=== PATIENT | female | born 1950 | race Caucasian/White ===

== ENCOUNTER 2020-06-17 12:53 | Outpatient (REF) | payer BC, SELFPAY ==
--- NOTE | ~2020-06-17 | XR_ITS ---
EXAMINATION: XR CHEST CLINICAL INFORMATION: Smoker. Essential tremor. COMPARISON: None. TECHNIQUE: 2 views of the chest were obtained. FINDINGS: The lungs are well expanded and clear of acute process. Heart size and pulmonary vascularity is normal. There is mild levoscoliosis of dorsal spine. There are surgical jose elias in the left axilla from previous intervention. XR/XR chest 2V IMPRESSION: No acute cardiopulmonary process seen.
== END 2020-06-17 12:54 | disposition home or self-care (01) ==
LOC: HO.XRAY 12:53
PROVIDERS: PCP Internal Medicine; Visit Provider Internal Medicine
DX: G25.0 Essential tremor (principal); F17.200 Nicotine dependence, unspecified, uncomplicated
CPT/HCPCS: 71046

== ENCOUNTER 2020-09-05 10:26 | Outpatient (REF) | payer BC, SELFPAY ==
[2020-09-05 10:43] LABS: MANUAL DIFF FLAG NO
[2020-09-05 11:18] LABS: Basophils Absolute Auto 0.1 X10*3/uL (0.0-0.2); Basophils Percent Auto 0.8 % (0-2); Eosinophils Absolute Auto 0.1 X10*3/uL (0.0-0.4); Eosinophils Percent Auto 1.4 % (0-4); Hemoglobin 15.4 g/dl (12.0-16.0); Imm Gran Abs Auto 0.01 X10*3/uL (0.00-0.03); Imm Gran Pct Auto 0.2 % (0.0-0.4); Lymphocytes Absolute Auto 2.2 X10*3/uL (1.2-4.9); Lymphocytes Percent Auto 33.2 % (20-40); Mean Corpuscular HGB Conc 32.1 g/dl (31.0-35.0); Mean Corpuscular Hemoglobin 32.4 pg (27.0-33.0); Mean Corpuscular Volume 100.8 fL (80-98); Mean Platelet Volume 11.4 fL (9.4-12.3); Monocytes Absolute Auto 0.8 X10*3/uL (0.1-1.2); Monocytes Percent Auto 11.7 % (2-11); Neutrophils Absolute Auto 3.4 X10*3/uL (2.0-8.3); Neutrophils Percent Auto 52.7 % (45-73); Platelet Count 218 X10*3/uL (160-400); Red Blood Count 4.76 X10*6/uL (4.20-5.50); Red Cell Distribution Width 13.2 % (11.0-16.0); White Blood Count 6.5 X10*3/uL (4.8-10.8)
[2020-09-05 11:28] LABS: Estimated Average Glucose 108 mg/dL; Hemoglobin A1c % 5.4 %
[2020-09-05 11:39] LABS: Glucose Urine UA NEG (NEG); Leukocyte Esterase Urine NEG (NEG); Nitrite Urine NEG (NEG); Specific Gravity - Urine 1.025 (1.005-1.025); Urine Blood 1+ (NEG); Urine Ketones NEG (NEG); Urine Protein NEG (NEG-TRACE)
[2020-09-05 11:43] LABS: Appearance Urine CLEAR; Color Urine YELLOW
[2020-09-05 11:55] LABS: Alanine Aminotransferase 12 U/L (0-31); Albumin Level 4.2 g/dL (3.5-5.0); Alkaline Phosphatase 76 U/L (39-117); Anion Gap 13 (12-20); Aspartate Amino Transferase 19 U/L (5-31); Bilirubin Total 0.5 mg/dL (0.0-1.0); Blood Urea Nitrogen 13 mg/dL (9-16); Calcium 9.6 mg/dL (8.4-10.2); Carbon Dioxide 31 mmol/L (22-29); Chloride 101 mmol/L (96-108); Cholesterol 227 mg/dL; Estimated Glomerular Filt Rate > 60; Glucose Fasting 88 mg/dL (60-99); HDL Cholesterol 59 mg/dL; LDL Cholesterol Calculated 140 mg/dl; Potassium 4.6 mmol/L (3.3-5.1); Sodium 140 mmol/L (135-145); Total Protein 6.3 g/dL (6.5-8.0); Triglycerides 141 mg/dL
[2020-09-05 12:18] LABS: Vitamin D 25-OH Total 10.1 ng/mL (>30)
[2020-09-05 12:35] LABS: Squamous Epithelial Cell Urine 2+ /LPF; WBC Urine 0-2 /HPF (0-4)
[2020-09-05 12:39] LABS: Creatinine Urine 159.89 mg/dL; Microalbum/Creatinine Ratio Ur 11.8 ug/mg cr
== END 2020-09-05 10:27 | disposition home or self-care (01) ==
LOC: HO.LNP 10:26
PROVIDERS: Visit Provider Internal Medicine
DX: Z00.00 Encounter for general adult medical examination without abnormal findings (principal); R73.03 Prediabetes; E78.2 Mixed hyperlipidemia; E78.00 Pure hypercholesterolemia, unspecified; E55.9 Vitamin D deficiency, unspecified
CPT/HCPCS: 80053; 80061; 81001; 81003; 82043; 82306; 83036; 85025

== ENCOUNTER 2020-12-26 09:53 | Outpatient (REF) | payer BC, SELFPAY ==
--- NOTE | ~2020-12-26 | MM_ITS ---
EXAMINATION: MM DIAGNOSTIC DIGITAL BREAST TOMOSYNTHESIS, BILATERAL US DIAGNOSTIC ULTRASOUND BREAST, LEFT CLINICAL INFORMATION: Due for yearly screening. At time of appointment, patient notes small superficial palpable nodule outer left breast. Prior history left breast cancer 2017 status post lumpectomy with partial breast irradiation with FELIPE brachy device in the lumpectomy bed. Ultrasound-guided aspiration lumpectomy seroma 02/01/2019 (no malignant cells on cytology). COMPARISON: Mammography: 12/25/2019, 12/23/2018, 12/20/2017, 10/16/2016; ultrasound left breast 12/23/2018. TECHNIQUE: Digital breast tomosynthesis is performed in both the craniocaudal and mediolateral oblique views along with computer-aided detection (CAD). Synthesized 2D images are generated from the tomosynthesis. Ultrasound left breast is targeted to the area of clinical concern outer breast using grayscale imaging and color Doppler without and with harmonics. Patient is able to point to area of concern at time of imaging. FINDINGS: There are scattered areas of fibroglandular density (ACR BI-RADS breast composition Category b). There are post therapy changes left breast lower inner quadrant similar to prior studies. There is residual seroma in the lumpectomy bed with chronic mild skin retraction. There is stable nodularity upper outer quadrant left breast similar to prior exams. The palpable nodule in the skin is not visualized. There are left axillary clips. No abnormal calcifications. Right breast shows no significant changes from prior studies. There is no developing density or interval mass or architectural abnormality or abnormal calcifications. Skin contours are smooth. Right axilla are unremarkable. Ultrasound outer left breast targeted to the area clinical concern demonstrates an intradermal cystic lesion long axis parallel to the skin and overall size 0.8 x 0.3 x 0.6 cm. There is no internal color flow or surrounding hyperemia. This most likely represents a sebaceous cyst or other benign epidermal cyst. Additional ultrasound of the lumpectomy bed again shows residual seroma, current measurements 2.1 x 1.6 x 1.1 cm compared with prior ultrasound measurements 2.8 x 2.7 x 1.6 cm. No internal color flow. Results are discussed with the patient at time of visit. MM/MM tomosynthesis diagnostic BI IMPRESSION: Left: -Postsurgical changes. Chronic seroma decreased in size since 2019 consistent with the prior aspiration. -Palpable nodule outer left breast corresponds to an intradermal lesion under 1 cm, likely sebaceous cyst or other benign epidermal cyst. Right: -No mammographic evidence of malignancy. ASSESSMENT: BI-RADS 2: Benign RECOMMENDATION: 1. The palpable intradermal lesion mid outer left breast may be managed as needed based on the clinical impression. If persistent or enlarging, it would be amenable to simple surgical excision. 2. Otherwise, routine annual screening mammography. This patient's information was entered into a reminder system with a target due date for their next mammogram.
== END 2020-12-26 09:54 | disposition home or self-care (01) ==
LOC: HO.MAMMO 09:53
PROVIDERS: Visit Provider Internal Medicine
DX: N63.20 Unspecified lump in the left breast, unspecified quadrant (principal); Z85.3 Personal history of malignant neoplasm of breast; Z92.3 Personal history of irradiation
CPT/HCPCS: 76642; 77062; 77066

== ENCOUNTER 2021-09-16 11:00 | Outpatient (REF) | payer BC, SELFPAY ==
[2021-09-16 11:04] LABS: MANUAL DIFF FLAG NO
[2021-09-16 11:28] LABS: Basophils Percent Auto 0.5 % (0-2); Eosinophils Absolute Auto 0.1 X10*3/uL (0.0-0.4); Eosinophils Percent Auto 1.1 % (0-4); Hematocrit 46.8 % (37.0-47.0); Hemoglobin 15.3 g/dl (12.0-16.0); Imm Gran Abs Auto 0.01 X10*3/uL (0.00-0.03); Imm Gran Pct Auto 0.2 % (0.0-0.4); Lymphocytes Absolute Auto 2.2 X10*3/uL (1.2-4.9); Lymphocytes Percent Auto 35.9 % (20-40); Mean Corpuscular HGB Conc 32.7 g/dl (31.0-35.0); Mean Corpuscular Hemoglobin 32.3 pg (27.0-33.0); Mean Corpuscular Volume 98.9 fL (80.0-98.0); Mean Platelet Volume 11.4 fL (9.4-12.3); Monocytes Absolute Auto 0.7 X10*3/uL (0.1-1.2); Monocytes Percent Auto 11.4 % (2-11); Neutrophils Absolute Auto 3.2 x10*3/uL (2.0-8.3); Neutrophils Percent Auto 50.9 % (45-73); Platelet Count 223 X10*3/uL (160-400); Red Blood Count 4.73 X10*6/uL (4.20-5.50); Red Cell Distribution Width 12.9 % (11.0-16.0); White Blood Count 6.2 X10*3/uL (4.8-10.8)
[2021-09-16 11:31] LABS: Alanine Aminotransferase 17 U/L (0-31); Albumin Level 4.5 g/dL (3.5-5.0); Alkaline Phosphatase 71 U/L (39-117); Anion Gap 12 (12-20); Aspartate Amino Transferase 21 U/L (5-31); Bilirubin Total 0.5 mg/dL (0.0-1.0); Blood Urea Nitrogen 11 mg/dL (9-16); Calcium 9.1 mg/dL (8.4-10.2); Carbon Dioxide 27 mmol/L (22-29); Chloride 103 mmol/L (96-108); Cholesterol 237 mg/dL; Estimated Glomerular Filt Rate > 60; Glucose Fasting 84 mg/dL (60-99); HDL Cholesterol 59 mg/dL; LDL Cholesterol Calculated 159 mg/dl; Potassium 4.4 mmol/L (3.3-5.1); Sodium 138 mmol/L (135-145); Total Protein 6.6 g/dL (6.5-8.0); Triglycerides 98 mg/dL
[2021-09-16 11:39] LABS: Estimated Average Glucose 108 mg/dL; Hemoglobin A1c % 5.4 %
[2021-09-16 11:45] LABS: Appearance Urine HAZY; Color Urine YELLOW; Glucose Urine UA NEG (NEG); Leukocyte Esterase Urine 2+ (NEG); Nitrite Urine NEG (NEG); PH 5.5 (5.0-8.0); Specific Gravity - Urine >= 1.030 (1.005-1.025); Urine Blood 2+ (NEG); Urine Ketones 5 MG/DL (NEG); Urine Protein 1+ MG/DL (NEG-TRACE)
[2021-09-16 11:51] LABS: Vitamin D 25-OH Total 9.4 ng/mL (>30)
[2021-09-16 12:21] LABS: Bacteria Urine 2+ /LPF; Squamous Epithelial Cell Urine 4+ /LPF
[2021-09-16 12:36] LABS: Microalbum/Creatinine Ratio Ur 65.4 ug/mg cr
== END 2021-09-16 11:01 | disposition home or self-care (01) ==
LOC: HO.LNP 11:00
PROVIDERS: Visit Provider Internal Medicine
DX: Z00.00 Encounter for general adult medical examination without abnormal findings (principal); R73.03 Prediabetes; E78.2 Mixed hyperlipidemia; E78.00 Pure hypercholesterolemia, unspecified; E55.9 Vitamin D deficiency, unspecified
CPT/HCPCS: 80053; 80061; 81001; 82043; 82306; 83036; 85025

== ENCOUNTER 2021-11-27 15:29 | Outpatient (REF) | payer BC, SELFPAY ==
[2021-11-27 16:40] LABS: TSH reflex Free T4 1.35 uIU/mL (0.32-4.0)
== END 2021-11-27 15:30 | disposition home or self-care (01) ==
LOC: HO.LNP 15:29
PROVIDERS: Visit Provider Internal Medicine
DX: G25.0 Essential tremor (principal)
CPT/HCPCS: 84443

== ENCOUNTER 2022-01-01 08:23 | Outpatient (REF) | payer BC, SELFPAY ==
--- NOTE | ~2022-01-01 | MM_ITS ---
EXAMINATION: MM SCREENING DIGITAL BREAST TOMOSYNTHESIS, BILATERAL CLINICAL INFORMATION: Due for yearly. History left breast cancer 2017 status post lumpectomy with partial breast irradiation with FELIPE brachy device in the lumpectomy bed. Ultrasound-guided aspiration lumpectomy seroma 02/01/2019 (no malignant cells on cytology). COMPARISON: Mammography: 12/26/2020, 12/25/2019, 12/23/2018, 12/20/2017, 06/16/2017, 10/16/2016; left breast ultrasound 12/26/2020. TECHNIQUE: Digital breast tomosynthesis is performed in both the craniocaudal and mediolateral oblique views along with computer-aided detection (CAD). Synthesized 2D images are generated from the tomosynthesis. FINDINGS: There are scattered areas of fibroglandular density (ACR BI-RADS breast composition Category b). There are post therapy changes left breast with mild reduced breast size and minor scarring and left axillary clips. The seroma has continued to decrease. There is benign chronic smooth nodularity again seen mid outer 3:00 position. No interval significant mass or architectural abnormality. The right breast parenchymal pattern is similar to prior studies. There are no abnormal calcifications. The axilla are unremarkable. MM/MM tomosynthesis screening BI IMPRESSION: No significant changes from prior studies. ASSESSMENT: BI-RADS 2: Benign RECOMMENDATION: Routine annual mammography screening. This patient's information was entered into a reminder system with a target due date for their next mammogram.
== END 2022-01-01 08:24 | disposition home or self-care (01) ==
LOC: HO.MAMMO 08:23
PROVIDERS: Visit Provider Internal Medicine
DX: Z12.31 Encounter for screening mammogram for malignant neoplasm of breast (principal)
CPT/HCPCS: 77063; 77067

== ENCOUNTER 2022-09-15 10:55 | Outpatient (REF) | payer BC, SELFPAY ==
[2022-09-15 11:00] LABS: MANUAL DIFF FLAG NO
[2022-09-15 11:11] LABS: Basophils Percent Auto 0.6 % (0-2); Eosinophils Absolute Auto 0.1 X10*3/uL (0.0-0.4); Eosinophils Percent Auto 1.2 % (0-4); Hematocrit 51.8 % (37.0-47.0); Hemoglobin 16.5 g/dl (12.0-16.0); Imm Gran Abs Auto 0.01 X10*3/uL (0.00-0.03); Imm Gran Pct Auto 0.2 % (0.0-0.4); Lymphocytes Absolute Auto 2.2 X10*3/uL (1.2-4.9); Lymphocytes Percent Auto 34.9 % (20-40); Mean Corpuscular HGB Conc 31.9 g/dl (31.0-35.0); Mean Corpuscular Hemoglobin 32.4 pg (27.0-33.0); Mean Corpuscular Volume 101.6 fL (80.0-98.0); Mean Platelet Volume 11.3 fL (9.4-12.3); Monocytes Absolute Auto 0.7 X10*3/uL (0.1-1.2); Monocytes Percent Auto 11.5 % (2-11); Neutrophils Absolute Auto 3.3 x10*3/uL (2.0-8.3); Neutrophils Percent Auto 51.6 % (45-73); Platelet Count 203 X10*3/uL (160-400); Red Cell Distribution Width 13.3 % (11.0-16.0); White Blood Count 6.4 X10*3/uL (4.8-10.8)
[2022-09-15 11:14] LABS: Appearance Urine Clear; Color Urine Yellow; Glucose Urine UA Negative (Negative); Leukocyte Esterase Urine Negative (Negative); Nitrite Urine Negative (Negative); PH 5.5 (5.0-9.0); Specific Gravity - Urine 1.015 (1.005-1.025); UMIC TRIGGER UACC YES; Urine Blood Small (1+) (Negative); Urine Ketones Negative (Negative); Urine Protein Negative (Neg-Trace)
[2022-09-15 11:18] LABS: Estimated Average Glucose 97 mg/dL
[2022-09-15 11:26] LABS: Bacteria Urine None Seen (None Seen); Hyaline Casts Urine 0-2 /LPF (0-2); RBC Urine 0-2 /HPF (0-2); WBC Urine 0-5 /HPF (0-5)
[2022-09-15 11:58] LABS: Alanine Aminotransferase 17 U/L (0-31); Albumin Level 4.2 g/dL (3.5-5.0); Alkaline Phosphatase 78 U/L (39-117); Anion Gap 12 (12-20); Aspartate Amino Transferase 18 U/L (5-31); Bilirubin Total 0.5 mg/dL (0.0-1.0); Blood Urea Nitrogen 11 mg/dL (9-16); Calcium 9.7 mg/dL (8.4-10.2); Carbon Dioxide 30 mmol/L (22-29); Chloride 103 mmol/L (96-108); Cholesterol 222 mg/dL; Estimated Glomerular Filt Rate > 60; Glucose Fasting 98 mg/dL (60-99); HDL Cholesterol 65 mg/dL; LDL Cholesterol Calculated 139 mg/dl; Potassium 4.4 mmol/L (3.3-5.1); Sodium 141 mmol/L (135-145); Total Protein 6.4 g/dL (6.5-8.0); Triglycerides 92 mg/dL
[2022-09-15 12:12] LABS: Vitamin D 25-OH Total 8.1 ng/mL (>30)
[2022-09-15 12:31] LABS: Creatinine Urine 104.77 mg/dL; Microalbum/Creatinine Ratio Ur 45.8 ug/mg cr
== END 2022-09-15 10:56 | disposition home or self-care (01) ==
LOC: HO.LNP 10:55
PROVIDERS: Visit Provider Internal Medicine
DX: Z00.00 Encounter for general adult medical examination without abnormal findings (principal); E78.00 Pure hypercholesterolemia, unspecified; R73.03 Prediabetes; E55.9 Vitamin D deficiency, unspecified
CPT/HCPCS: 80053; 80061; 81001; 82043; 82306; 83036; 85025

== ENCOUNTER 2022-11-03 09:53 | Outpatient (REF) | payer BC, SELFPAY ==
--- NOTE | ~2022-11-03 | FL_ITS ---
EXAMINATION: XR FLUOROSCOPY UPPER GI WITH AIR CLINICAL INFORMATION: Loss of appetite, small amount of weight loss over past 2 years approximately 20 pounds. COMPARISON: Barium swallow/esophagram 08/07/2015. TECHNIQUE: Dual contrast air upper GI was performed utilizing standard techniques with barium contrast. FINDINGS: The hypopharynx demonstrates a normal appearance. A small amount of cricopharyngeal achalasia was present. Esophagus demonstrates mild disordered contractions however the primary peristaltic wave was adequately adequately propulsive. There is no mass, mucosal abnormality, or esophageal stricture identified. A small pulsion diverticulum was noted just above the esophageal vestibule, appearing stable from the prior examination. This is best demonstrated on image 2 of 19. The GE junction was otherwise normal in appearance. No significant hiatus hernia was evident. The stomach dilated and normally with gas and contrast. Stomach has normal fold thickness and contour. No masses, ulcerations, or contour abnormalities. Contrast freely passed into the duodenal bulb without delay. Images of the duodenal bulb and proximal duodenum were normal in appearance. On reflux views, no significant gastroesophageal reflux could be elicited. The patient's symptoms could not be elicited during the examination. No additional findings noted in surrounding soft tissues and bone. Aortic calcifications were noted. FLUOROSCOPY TIME: 3.7 minutes 36 images obtained. DOSE AREA PRODUCT: 21.228 uGy-m2 (microgray-meter squared) FL/FL upper GI w air IMPRESSION: 1. Mild presbyesophagus. Mild cricopharyngeal achalasia. 2. No significant reflux, mass, hiatus hernia, stricture, or mucosal abnormality. Small pulsion diverticulum just above the lower esophageal sphincter, unchanged from the prior exam. 3. Normal appearing stomach, duodenal bulb, and proximal duodenum.
== END 2022-11-03 09:54 | disposition home or self-care (01) ==
LOC: HO.XRAY 09:53
PROVIDERS: PCP Internal Medicine; Visit Provider Internal Medicine
DX: R63.0 Anorexia (principal)
CPT/HCPCS: 74246

== ENCOUNTER → 2022-11-03 09:55 | Outpatient (BNV) | payer BC, SELFPAY | PROVIDERS: PCP Internal Medicine; Visit Provider Radiology Diagnostic Radiology | DX: R63.0 Anorexia (principal) | CPT/HCPCS: 74246 ==

== ENCOUNTER 2022-11-20 09:45 | Inpatient (IN) | payer MEDICARE, BC, SELFPAY ==
[2022-11-20] VITALS (17 sets, daily range): BP systolic 100–177; BP diastolic 44–101; PULSE 63–95; RESP 12–28; TEMP 36.2–37.1; O2SAT 65–96; BMI 25.8; BMI 22.2
--- NOTE | ~2022-11-20 | CT_ITS ---
EXAMINATION: CT HEAD WITHOUT CONTRAST CLINICAL INFORMATION: Change in mental status COMPARISON: None available. TECHNIQUE: Contiguous axial imaging was performed from the skull base to vertex without intravenous administration of contrast. This CT examination was performed using dose optimization techniques as appropriate, variously including the following: *Automated exposure control *Adjustment of mA and/or kV according to patient size (this includes techniques or standardized protocols for targeted exams where dose is matched to indication/reason for exam; i.e. extremities or head) *Use of iterative reconstruction technique DLP: 634 mGy-cm FINDINGS: There is no evidence of acute intracranial hemorrhage or territorial infarction. No abnormal mass effect or midline shift is seen. Gillespie to white matter differentiation is well preserved. No extra-axial fluid collections are identified. The ventricles are normal in size. There is no abnormal attenuation within the brain parenchyma. The osseous structures and soft tissues are normal. The mastoid air cells and visualized portions of the paranasal sinuses are well-aerated. CT/CT head/brain wo IV con IMPRESSION: No acute intracranial pathology.
--- NOTE | ~2022-11-20 | XR_ITS ---
EXAMINATION: XR CHEST CLINICAL INFORMATION: Shortness of breath. Rule out CHF versus pneumonia. COMPARISON: Previous chest x-ray May [address] September 2022 TECHNIQUE: Frontal view of the chest was obtained. FINDINGS: The cardiac silhouette does not appear enlarged. Evaluation of the cervicothoracic inlet region, superior mediastinum and upper lobes is limited due to patient positioning, chin overlying this region. There is question of bronchial wall thickening or increased bronchovascular markings in the upper lobes versus changes due to patient positioning. The lungs are otherwise clear. No pleural effusion or pneumothorax. No acute bone abnormality. Surgical clips in the left axilla. XR/XR chest 1V IMPRESSION: Limited exam due to patient positioning. Question increased central bronchovascular markings of the upper lobes versus changes due to overlying chin /artifact. Follow-up chest x-ray should be considered if clinically indicated.
--- NOTE | ~2022-11-20 | CT_ITS ---
EXAMINATION: CT CHEST WITHOUT CONTRAST CLINICAL INFORMATION: Shortness of breath question of pneumonia versus CHF COMPARISON: None available. TECHNIQUE: Multidetector volumetric CT imaging of the chest was done. Axial MIP volume rendering provided. Sagittal and coronal reformatted images were obtained. This CT examination was performed using dose optimization techniques as appropriate, variously including the following: *Automated exposure control *Adjustment of mA and/or kV according to patient size (this includes techniques or standardized protocols for targeted exams where dose is matched to indication/reason for exam; i.e. extremities or head) *Use of iterative reconstruction technique DLP: 933 mGy-cm FINDINGS: LOG CLERK: Unremarkable LUNGS: There are emphysematous changes with bullous disease in the right upper lobe and the subpleural patchy atelectasis. Central airways revealed mucous impaction of the right lower lobe main bronchus and left lower lobe main bronchus. Trachea is clear MEDIASTINUM .: The mediastinum is normal. CORONARY ARTERY CALCIFICATION: None visualized on this study. PLEURA: There is no pleural effusion. No pleural mass or thickening. But irregular thickening. The lung bases AXILLA: There are postsurgical jose elias in left axilla UPPER ABDOMEN: There is left adrenal gland nodule measured 1.4 x 1.2 cm. OSSEOUS STRUCTURES: Unremarkable. CT/CT chest wo IV con IMPRESSION: 1. Emphysematous changes with bullous disease in the right upper lobe. 2. Mucous impaction in the right and left lower lobe main bronchi. 3. Left adrenal gland nodule. Fleischner guidelines were followed.
--- NOTE | 2022-11-20 09:53 | ED_ITS ---
HPI - SOB/Dyspnea General Chief Complaint: Dyspnea Stated Complaint: DIFF BREATHING SOB Time Seen by Provider: 11/20/22 09:47 Source: patient and family Mode of arrival: EMS Limitations: altered mental status History of Present Illness HPI Narrative: 72-year-old female with a history of breast cancer 6 years prior treated with radiation therapy who presents emergency department for evaluation fatigue fever, chills, productive cough, shortness of breath, dyspnea on exertion, loss of appetite and confusion. The information came from the patient's , Ranulfo who is here in the emergency department with the patient. The states that the patient has been sick for approximately 1 week. She usually has a poor appetite but has had very little food intake over the last week the patient has had a productive cough. She has complained of shortness of breath and has been getting more dyspneic over the last week. He she had subjective fever and chills at home. She had no nausea, vomiting or diarrhea. Patient did see her primary care provider, Dr. Dow and was started on Zithromax 4 day s prior. Today, the patient appeared to be ?incoherent ?. Patient was very weak was having difficulty getting off the toilet, therefore the called an ambulance. When BLS arrived on the scene, the patient was 65% on room air and on 15 L non- rebreather mask, she was 96%. Past medical history significant for breast cancer 6 years prior treated with radiation therapy only, the states the patient had a recent CT scan of the chest abdomen pelvis on 10/02/2022 which was negative, she also had upper GI 11/03/2022 which was negative. Patient does drink 1 glass of wine per day. The patient continues to smoke cigarettes, she smoked up to 2 packs of cigarettes per day times 50 years is currently smoking 3-4 cigarettes per day. Related Data Allergies Allergy/AdvReac Type Severity Reaction Status Date / Time cat dander [CATS] Allergy Mild sneeze Unverified 12/14/19 17:24 ENVIRONMENTAL Allergy Mild SNEEZING Uncoded 12/14/19 17:24 Medical Tape Allergy Unknown rash Uncoded 08/03/17 00:00 Review of Systems Review of Systems: Yes Unobtainable due to mental status PMFSH Past Medical History PMFSH Narrative: Past medical history: Breast cancer, left breast 6 years prior treated with radiation therapy only. Social history: She is and lives with her Ranulfo who is here in the emergency department with her. Patient has a 50 year history of smoking cigarettes up to 2 packs per day he is currently smoking 4-5 cigarettes per day. She drinks 1 glass of wine daily. She does not use drugs. Social History Social History Alcohol intake: never Smoked in Last 30 Days: Yes Use of substances other than those prescribed or required for medical reasons: No Advance Directives: No Advance Directives Information Provided: No Physical Exam Vital Signs: Vital Signs: Last Vital Signs Temp 98.8 F 11/20/22 10:21 Pulse 77 11/20/22 10:25 Resp 28 H 11/20/22 13:51 BP 177/101 H 11/20/22 09:54 Pulse Ox 96 11/20/22 09:54 O2 Del Method Non-Rebreather Ma sk 11/20/22 09:54 Oxygen Flow Rate 15 11/20/22 09:54 BMI result Body Mass Index 25.8 Exam: General: Lethargic, oriented to person, she recognizes her Head: Normocephalic, atraumatic EENT: PERRL, Lids normal, sclera normal, conjunctiva normal, nose normal , ears normal, throat without erythema or exudates Neck: Supple, no adenopathy, trachea midline and nontender Lung: breath sounds symmetric, no wheezing, rales at the bases or rhonchi Chest: symmetric movement, nontender Heart: regular rate and rhythm, normal S1, S2 no murmurs or rubs Abdomen: soft, non-tender, nondistended, normal bowel sounds Back: no vertebral tenderness, no CVAT Extremities: no deformities, moves all extremities symmetrically, trace to 1+ pitting edema bilaterally symmetric Skin: no rashes, no lesion, normal color and warmth Neuro: Lethargic, oriented to person, follows commands, moves all extremities symmetrically ve Medications Administered Discontinued Medications Generic Name Dose Route Start Last Admin Trade Name Freq PRN Reason Stop Dose Admin Albuterol Sulfate 5 mg 11/20/22 10:07 11/20/22 10:16 Albuterol Sulfate (0.083%) 2.5 Mg/3 Ml Vial.Neb INHALE 11/20/22 10:08 5 mg ONCE ONE Administration Ceftriaxone Sodium 1 gm/ 50 mls @ 100 mls/hr 11/20/22 10:08 11/20/22 10:48 Sodium Chloride IV 11/20/22 10:37 Infused ONCE STA Infusion Azithromycin 500 mg/ Sodium 250 mls @ 125 mls/hr 11/20/22 10:08 11/20/22 10:47 Chloride IV 11/20/22 12:07 125 mls/hr ONCE ONE Administration Medical Decision Making Medical Decision Making MDM Narrative: 72-year-old female history of left breast cancer 6 years prior treated with radiation therapy only, tobacco use disorder, daily alcohol use who presents emergency department for evaluation of fever, chills, fatigue, productive cough, shortness of breath and worsening dyspnea on exertion over 1 week with altered mental status today prior to coming to the emergency department. Patient was seen by her PCP and started on Zithromax 4 days prior with no improvement of her symptoms. Patient was found to be hypoxic by EMS with an O2 saturation of 65% on room air which improved on 15 L via non-rebreather mask to 96%. On presentation to the emergency department the patient was lethargic but was answering questions and following commands, she she was placed on BiPAP 14/6 with FiO2 30% and maintain tidal volumes 300 cc and O2 saturations in the 96% range. Vital signs revealed an elevated blood pressure of 177/106 elevated respiratory rate of 24 and she was afebrile with a temperature of 98.6 degrees F orally. Lung exam did reveal rales at the bases and she does have trace to 1+ pitting edema bilaterally. I ordered the following evaluation on the patient: CBC, CMP, BNP, troponin, lipase, COVID-19, lactic acid, lipase, PT/INR, PTT, VBG, blood cultures x2, chest x-ray one view, EKG, continuous media monitor, continuous pulse ox monitoring. 12:20: Patient's laboratory evaluation revealed a normal CBC except for an elevated MCV of 101. Patient's the venous pH was low at 7.31 with an elevated pCO2 of 70 suggesting the patient may have respiratory acidosis. Patient's BNP was elevated at 249 but no obvious CHF on chest x-ray. High sensitive troponin I was detectable but not elevated at 8.3. The radiology interpretation of the patient's x-ray was question left upper lobe infiltrate as opposed to my interpretation which was right lower lobe and left upper lobe infiltrate. The patient is still somnolent but arousable. We have not obtained a urine sample therefore I ordered a Gan catheter. I will see if the patient can be taken off BiPAP and I will repeat a venous blood gas and high sensitive troponin I at 13:15 hours. 12:43: I did discuss the patient's presentation with the covering esthetic dermatologist, Dr. Morgan. He recommended CT scan of the head and chest without IV contrast, urine antigens for Streptococcus and Legionella, respiratory panel, ethanol level and urine drug screen. He will evaluate the patient determine if the patient needs ICU criteria. 13:59: The patient's repeat venous blood gas revealed a pH of 7.30 with a pCO2 of 75- this increased from 70. Patient most likely has acute on chronic COPD exacerbation with hypoxic hypercarbic respiratory failure. Given this increase in peak CO2, the patient will need to remain on BiPAP. The patient has been accepted into the intensive care unit by Dr. Morgan. Differential Diagnosis Differential Diagnoses: The differential diagnosis associated with the presentation includes Differential diagnosis includes was not limited to pneumonia, congestive heart failure, urinary tract infection, electrolyte abnormality, anemia Admission/Observation Consideration of admission/observation: Escalation of care including admission/observation considered Lab Data MDM Lab Attestation statement: I reviewed the patient's lab results. My interpretation patient's laboratory evaluation as follows: WBC was normal 10,800. Patient was not anemic with an H&H of 14 and 46.7 but she does have an elevated MCV of 101. Chloride elevated 92. Bicarb elevated 36. AST elevated 60. Troponin was detectable but not elevated 8.3. Lactic acid was normal 0.8. Venous blood gas revealed low pH of 7.31 with an elevated CO2 of 70. BMP was elevated 249. 11/20/22 09:56 11/20/22 09:56 Labs: Lab Results 11/20/22 11/20/22 11/20/22 Range/Units 09:56 09:56 09:56 WBC 10.8 (4.8-10.8) X10*3/uL RBC 4.56 (4.20-5.50) X10*6/uL Hgb 14.7 (12.0-16.0) g/dl Hct 46.1 (37.0-47.0) % MCV 101.1 H (80.0-98.0) fL MCH 32.2 (27.0-33.0) pg MCHC 31.9 (31.0-35.0) g/dl RDW 12.2 (11.0-16.0) % Plt Count 319 D (160-400) X10*3/uL MPV 10.0 (9.4-12.3) fL Immature Gran % (Auto) 1.4 H (0.0-0.4) % Neut % (Auto) 71.2 (45-73) % Lymph % (Auto) 14.8 L (20-40) % [place] % (Auto) 12.3 H (2-11) % Eos % (Auto) 0.1 (0-4) % Baso % (Auto) 0.2 (0-2) % Lymph # (Auto) 1.6 (1.2-4.9) X10*3/uL [place] # (Auto) 1.3 H (0.1-1.2) X10*3/uL Eos # (Auto) 0.0 (0.0-0.4) X10*3/uL Baso # (Auto) 0.0 (0.0-0.2) X10*3/uL Abs Immat Gran (auto) 0.15 H (0.00-0.03) X10*3/uL Absolute Neuts (auto) 7.7 (2.0-8.3) x10*3/uL Absolute Nucleated RBC 0.000 (0.0-0.012) X10*3/uL Nucleated RBC % (auto) 0.0 (0.0-0.2) /100WBC PT 12.0 (11.1-13.3) SEC INR 1.0 (0.9-1.1) APTT 27.2 (26.0-36.4) SEC VBG pH (7.32-7.43) VBG pCO2 mmHg VBG pO2 mmHg VBG HCO3 (22-26) mmol/L VBG O2 Saturation % VBG Base Excess mmol/L Sodium 135 (135-145) mmol/L Potassium 5.0 (3.3-5.1) mmol/L Chloride 92 L (96-108) mmol/L Carbon Dioxide 36 H (22-29) mmol/L Anion Gap 12 (12-20) BUN 17 H (9-16) mg/dL Creatinine 0.65 (0.5-1.4) mg/dL Estim Creat Clear Calc 77.4 Estimated GFR > 60 Random Glucose 157 H (60-115) mg/dL Lactic Acid (0.5-2.0) mmol/L Calcium 9.8 (8.4-10.2) mg/dL Total Bilirubin 0.3 (0.0-1.0) mg/dL AST 30 (5-31) U/L ALT 60 H (0-31) U/L Alkaline Phosphatase 81 (39-117) U/L Troponin I High Sens (<3.5-17.0) ng/L B-Natriuretic Peptide (<100) pg/mL Total Protein 7.0 (6.5-8.0) g/dL Albumin 4.0 (3.5-5.0) g/dL Lipase 11 (8-78) U/L Urine Color Urine Appearance Urine pH (5.0-9.0) Ur Specific [place] (1.005-1.025) Urine Protein (Neg-Trace) mg/dL Urine Glucose (UA) (Negative) mg/dL Urine Ketones (Negative) mg/dL Urine Blood (Negative) Urine Nitrite (Negative) Ur Leukocyte Esterase (Negative) Urine RBC (0-2) /HPF Urine WBC (0-5) /HPF Ur Squamous Epith Cells (0-2) /HPF Urine Bacteria (None Seen) Hyaline Casts (0-2) /LPF Ethyl Alcohol mg/dL COVID-19 (ANUPAM) (Negative) COVID-19 Clin Com 11/20/22 11/20/22 11/20/22 Range/Units 09:56 10:06 10:10 WBC (4.8-10.8) X10*3/uL RBC (4.20-5.50) X10*6/uL Hgb (12.0-16.0) g/dl Hct (37.0-47.0) % MCV (80.0-98.0) fL MCH (27.0-33.0) pg MCHC (31.0-35.0) g/dl RDW (11.0-16.0) % Plt Count (160-400) X10*3/uL MPV (9.4-12.3) fL Immature Gran % (Auto) (0.0-0.4) % Neut % (Auto) (45-73) % Lymph % (Auto) (20-40) % [place] % (Auto) (2-11) % Eos % (Auto) (0-4) % Baso % (Auto) (0-2) % Lymph # (Auto) (1.2-4.9) X10*3/uL [place] # (Auto) (0.1-1.2) X10*3/uL Eos # (Auto) (0.0-0.4) X10*3/uL Baso # (Auto) (0.0-0.2) X10*3/uL Abs Immat Gran (auto) (0.00-0.03) X10*3/uL Absolute Neuts (auto) (2.0-8.3) x10*3/uL Absolute Nucleated RBC (0.0-0.012) X10*3/uL Nucleated RBC % (auto) (0.0-0.2) /100WBC PT (11.1-13.3) SEC INR (0.9-1.1) APTT (26.0-36.4) SEC VBG pH 7.31 L (7.32-7.43) VBG pCO2 70 mmHg VBG pO2 132 mmHg VBG HCO3 35 H (22-26) mmol/L VBG O2 Saturation 100.0 % VBG Base Excess 6.5 mmol/L Sodium (135-145) mmol/L Potassium (3.3-5.1) mmol/L Chloride (96-108) mmol/L Carbon Dioxide (22-29) mmol/L Anion Gap (12-20) BUN (9-16) mg/dL Creatinine (0.5-1.4) mg/dL Estim Creat Clear Calc Estimated GFR Random Glucose (60-115) mg/dL Lactic Acid 0.8 (0.5-2.0) mmol/L Calcium (8.4-10.2) mg/dL Total Bilirubin (0.0-1.0) mg/dL AST (5-31) U/L ALT (0-31) U/L Alkaline Phosphatase (39-117) U/L Troponin I High Sens 8.3 (<3.5-17.0) ng/L B-Natriuretic Peptide (<100) pg/mL Total Protein (6.5-8.0) g/dL Albumin (3.5-5.0) g/dL Lipase (8-78) U/L Urine Color Urine Appearance Urine pH (5.0-9.0) Ur Specific [place] (1.005-1.025) Urine Protein (Neg-Trace) mg/dL Urine Glucose (UA) (Negative) mg/dL Urine Ketones (Negative) mg/dL Urine Blood (Negative) Urine Nitrite (Negative) Ur Leukocyte Esterase (Negative) Urine RBC (0-2) /HPF Urine WBC (0-5) /HPF Ur Squamous Epith Cells (0-2) /HPF Urine Bacteria (None Seen) Hyaline Casts (0-2) /LPF Ethyl Alcohol mg/dL COVID-19 (ANUPAM) (Negative) COVID-19 Clin Com 11/20/22 11/20/22 11/20/22 Range/Units 10:10 10:10 12:56 WBC (4.8-10.8) X10*3/uL RBC (4.20-5.50) X10*6/uL Hgb (12.0-16.0) g/dl Hct (37.0-47.0) % MCV (80.0-98.0) fL MCH (27.0-33.0) pg MCHC (31.0-35.0) g/dl RDW (11.0-16.0) % Plt Count (160-400) X10*3/uL MPV (9.4-12.3) fL Immature Gran % (Auto) (0.0-0.4) % Neut % (Auto) (45-73) % Lymph % (Auto) (20-40) % [place] % (Auto) (2-11) % Eos % (Auto) (0-4) % Baso % (Auto) (0-2) % Lymph # (Auto) (1.2-4.9) X10*3/uL [place] # (Auto) (0.1-1.2) X10*3/uL Eos # (Auto) (0.0-0.4) X10*3/uL Baso # (Auto) (0.0-0.2) X10*3/uL Abs Immat Gran (auto) (0.00-0.03) X10*3/uL Absolute Neuts (auto) (2.0-8.3) x10*3/uL Absolute Nucleated RBC (0.0-0.012) X10*3/uL Nucleated RBC % (auto) (0.0-0.2) /100WBC PT (11.1-13.3) SEC INR (0.9-1.1) APTT (26.0-36.4) SEC VBG pH (7.32-7.43) VBG pCO2 mmHg VBG pO2 mmHg VBG HCO3 (22-26) mmol/L VBG O2 Saturation % VBG Base Excess mmol/L Sodium (135-145) mmol/L Potassium (3.3-5.1) mmol/L Chloride (96-108) mmol/L Carbon Dioxide (22-29) mmol/L Anion Gap (12-20) BUN (9-16) mg/dL Creatinine (0.5-1.4) mg/dL Estim Creat Clear Calc Estimated GFR Random Glucose (60-115) mg/dL Lactic Acid (0.5-2.0) mmol/L Calcium (8.4-10.2) mg/dL Total Bilirubin (0.0-1.0) mg/dL AST (5-31) U/L ALT (0-31) U/L Alkaline Phosphatase (39-117) U/L Troponin I High Sens (<3.5-17.0) ng/L B-Natriuretic Peptide 249 H (<100) pg/mL Total Protein (6.5-8.0) g/dL Albumin (3.5-5.0) g/dL Lipase (8-78) U/L Urine Color Yellow Urine Appearance Clear Urine pH 5.5 (5.0-9.0) Ur Specific [place] 1.025 (1.005-1.025) Urine Protein 100 (2+) H (Neg-Trace) mg/dL Urine Glucose (UA) Negative (Negative) mg/dL Urine Ketones Trace (Negative) mg/dL Urine Blood Small (1+) H (Negative) Urine Nitrite Negative (Negative) Ur Leukocyte Esterase Negative (Negative) Urine RBC 11-20 H (0-2) /HPF Urine WBC 6-10 H (0-5) /HPF Ur Squamous Epith Cells 3-5 (0-2) /HPF Urine Bacteria None Seen (None Seen) Hyaline Casts 0-2 (0-2) /LPF Ethyl Alcohol mg/dL COVID-19 (ANUPAM) Negative (Negative) COVID-19 Clin Com See Note 11/20/22 11/20/22 Range/Units 12:58 13:07 WBC (4.8-10.8) X10*3/uL RBC (4.20-5.50) X10*6/uL Hgb (12.0-16.0) g/dl Hct (37.0-47.0) % MCV (80.0-98.0) fL MCH (27.0-33.0) pg MCHC (31.0-35.0) g/dl RDW (11.0-16.0) % Plt Count (160-400) X10*3/uL MPV (9.4-12.3) fL Immature Gran % (Auto) (0.0-0.4) % Neut % (Auto) (45-73) % Lymph % (Auto) (20-40) % [place] % (Auto) (2-11) % Eos % (Auto) (0-4) % Baso % (Auto) (0-2) % Lymph # (Auto) (1.2-4.9) X10*3/uL [place] # (Auto) (0.1-1.2) X10*3/uL Eos # (Auto) (0.0-0.4) X10*3/uL Baso # (Auto) (0.0-0.2) X10*3/uL Abs Immat Gran (auto) (0.00-0.03) X10*3/uL Absolute Neuts (auto) (2.0-8.3) x10*3/uL Absolute Nucleated RBC (0.0-0.012) X10*3/uL Nucleated RBC % (auto) (0.0-0.2) /100WBC PT (11.1-13.3) SEC INR (0.9-1.1) APTT (26.0-36.4) SEC VBG pH 7.30 L (7.32-7.43) VBG pCO2 75 mmHg VBG pO2 55 mmHg VBG HCO3 37 H (22-26) mmol/L VBG O2 Saturation 80.0 % VBG Base Excess 8.2 mmol/L Sodium (135-145) mmol/L Potassium (3.3-5.1) mmol/L Chloride (96-108) mmol/L Carbon Dioxide (22-29) mmol/L Anion Gap (12-20) BUN (9-16) mg/dL Creatinine (0.5-1.4) mg/dL Estim Creat Clear Calc Estimated GFR Random Glucose (60-115) mg/dL Lactic Acid (0.5-2.0) mmol/L Calcium (8.4-10.2) mg/dL Total Bilirubin (0.0-1.0) mg/dL AST (5-31) U/L ALT (0-31) U/L Alkaline Phosphatase (39-117) U/L Troponin I High Sens (<3.5-17.0) ng/L B-Natriuretic Peptide (<100) pg/mL Total Protein (6.5-8.0) g/dL Albumin (3.5-5.0) g/dL Lipase (8-78) U/L Urine Color Urine Appearance Urine pH (5.0-9.0) Ur Specific [place] (1.005-1.025) Urine Protein (Neg-Trace) mg/dL Urine Glucose (UA) (Negative) mg/dL Urine Ketones (Negative) mg/dL Urine Blood (Negative) Urine Nitrite (Negative) Ur Leukocyte Esterase (Negative) Urine RBC (0-2) /HPF Urine WBC (0-5) /HPF Ur Squamous Epith Cells (0-2) /HPF Urine Bacteria (None Seen) Hyaline Casts (0-2) /LPF Ethyl Alcohol < 10 mg/dL COVID-19 (ANUPAM) (Negative) COVID-19 Clin Com Independent Interpretation I performed an independent interpretation of an: EKG and Plain X-Ray Interpretation: My independent interpretation patient's one-view chest x-ray is as follows: Right lower lobe infiltrate and left upper lobe infiltrate My independent interpretation patient's 12 EKG done at 10:10 hours is as follows: Normal sinus rhythm with a rate of 87, normal IA interval, QRS duration QTC interval, no ST segment elevation, no ST segment depression, inverted T-wave in V1, Q-waves in V1 through V2, compared to EKG dated November 10 2016, Q-wave in V1 was old, Q-wave in V2 is new, inverted T-wave in V1 is old. Radiology Impression Radiologist Impression: XR chest 1V IMPRESSION: Limited exam due to patient positioning. Question increased central bronchovascular markings of the upper lobes versus changes due to overlying chin /artifact. Follow-up chest x-ray should be considered if clinically indicated. Dictated By:Elmira Marrero MD Critical Care Time Critical Care Time Total Critical Care Time: 120 Attestation: Critical Care: The patient was critically ill with a high probability of imminent or life threatening deterioration. I spent greater than 30 minutes of discontinuous time evaluating the patient,delivering critical care at the bedside, discussing and evaluating pertinent data with consultants. Critical care time does not include time spent performing separately billable procedures or teaching. Total time spent performing critical care was 120 minutes. Discharge Plan Discharge Clinical Impression: Acute exacerbation of chronic obstructive pulmonary disease, Lethargic Respiratory failure with hypoxia and hypercapnia Qualifiers: Chronicity: acute on chronic Qualified Code(s): J96.21 - Acute and chronic respiratory failure with hypoxia Pneumonia Qualifiers: Laterality: left Lung location: lower lobe of lung Patient Disposition: Admitted As Inpatient
--- NOTE | 2022-11-20 09:53 | ECG_ITS ---
Test Reason : SOB Blood Pressure : / mmHG Vent. Rate : 087 BPM Atrial Rate : 087 BPM P-R Int : 124 ms QRS Dur : 082 ms QT Int : 352 ms P-R-T Axes : 083 -01 044 degrees QTc Int : 423 ms Normal sinus rhythm Cannot rule out Anteroseptal infarct , age undetermined Abnormal ECG When compared with ECG of 10-NOV-2016 12:49, Minimal criteria for Anteroseptal infarct are now Present Referred By: Te Ngo Electronically Signed By:CHEMO LIVE
[2022-11-20 10:07] LABS: MANUAL DIFF FLAG NO
[2022-11-20 10:11] LABS: VBG Base Excess 6.5 mmol/L; VBG HCO3 35 mmol/L (22-26); VBG pCO2 70 mmHg; VBG pH 7.31 (7.32-7.43); VBG pO2 132 mmHg
[2022-11-20 10:11] LABS: Basophils Percent Auto 0.2 % (0-2); Eosinophils Percent Auto 0.1 % (0-4); Hematocrit 46.1 % (37.0-47.0); Hemoglobin 14.7 g/dl (12.0-16.0); Imm Gran Abs Auto 0.15 X10*3/uL (0.00-0.03); Imm Gran Pct Auto 1.4 % (0.0-0.4); Lymphocytes Absolute Auto 1.6 X10*3/uL (1.2-4.9); Lymphocytes Percent Auto 14.8 % (20-40); Mean Corpuscular HGB Conc 31.9 g/dl (31.0-35.0); Mean Corpuscular Hemoglobin 32.2 pg (27.0-33.0); Mean Corpuscular Volume 101.1 fL (80.0-98.0); Monocytes Absolute Auto 1.3 X10*3/uL (0.1-1.2); Monocytes Percent Auto 12.3 % (2-11); Neutrophils Absolute Auto 7.7 x10*3/uL (2.0-8.3); Neutrophils Percent Auto 71.2 % (45-73); Platelet Count 319 X10*3/uL (160-400); Red Blood Count 4.56 X10*6/uL (4.20-5.50); Red Cell Distribution Width 12.2 % (11.0-16.0); White Blood Count 10.8 X10*3/uL (4.8-10.8)
[2022-11-20 10:13] LABS: Venous Blood Gas Refer to POC result
[2022-11-20] MEDS: Albuterol Sulfate (0.083%) 2.5 MG/3 ML VIAL.NEB 5 MG INHALE (10:16)
[2022-11-20] MEDS: cefTRIAXone sodium 1 GM in 0.9 % Sodium Chloride 50 ML IV ×2 (10:17→20:52)
[2022-11-20 10:19] LABS: Partial Thromboplastin Time 27.2 SEC (26.0-36.4)
--- NOTE | 2022-11-20 10:29 | PC.NURSE ---
PER (BEDSIDE) PT IS ON A Z-PACK THIS IS DAY 4. PT DID NOT TAKE HER DOSAGE TODAY. PT IS ON BIPAP - 14/6 AT 30%. LUNGS - L SIDE -CTA, R SIDE OF LUNGS - DIMINSHED. HEART SOUNDS - REGULAR. ABD SOFT AND NON-TENDER, BS + X 4. PT STATES THAT PT HAS BEEN DEPRESSED, BUT SI/HI. NO EDEMA NOTED.
[2022-11-20 10:34] LABS: COVID-19 Test Negative (Negative); IDNOW Serial# BCCEAD1C
--- NOTE | 2022-11-20 10:34 | PC.NURSE ---
PT HAS # IV 20 TO L AC AND # IV 20 TO R WRIST
[2022-11-20 10:35] LABS: Alanine Aminotransferase 60 U/L (0-31); Alkaline Phosphatase 81 U/L (39-117); Anion Gap 12 (12-20); Aspartate Amino Transferase 30 U/L (5-31); Bilirubin Total 0.3 mg/dL (0.0-1.0); Blood Urea Nitrogen 17 mg/dL (9-16); Calcium 9.8 mg/dL (8.4-10.2); Carbon Dioxide 36 mmol/L (22-29); Chloride 92 mmol/L (96-108); Creatinine Clr Calc Pharmacy 77.4; Estimated Glomerular Filt Rate > 60; Glucose Random 157 mg/dL (60-115); Lipase 11 U/L (8-78); Sodium 135 mmol/L (135-145)
[2022-11-20 10:36] LABS: Lactic Acid 0.8 mmol/L (0.5-2.0)
[2022-11-20 10:42] LABS: Troponin-I High Sensitivity 8.3 ng/L (<3.5-17.0)
[2022-11-20] MEDS: Azithromycin 500 MG in 0.9 % Sodium Chloride 250 ML 125 MG IV (10:47)
[2022-11-20 10:48] LABS: B Type Natriuretic Peptide 249 pg/mL (<100)
[2022-11-20 13:12] LABS: Appearance Urine Clear; Color Urine Yellow; Glucose Urine UA Negative (Negative); Leukocyte Esterase Urine Negative (Negative); Nitrite Urine Negative (Negative); PH 5.5 (5.0-9.0); Specific Gravity - Urine 1.025 (1.005-1.025); UMIC TRIGGER UACC YES; Urine Blood Small (1+) (Negative); Urine Ketones Trace mg/dL (Negative); Urine Protein 100 (2+) mg/dL (Neg-Trace)
[2022-11-20 13:14] LABS: VBG Base Excess 8.2 mmol/L; VBG HCO3 37 mmol/L (22-26); VBG pCO2 75 mmHg; VBG pO2 55 mmHg
[2022-11-20 13:14] LABS: Venous Blood Gas Refer to POC result
[2022-11-20 13:14] LABS: Bacteria Urine None Seen (None Seen); Hyaline Casts Urine 0-2 /LPF (0-2); UACC Culture Trigger YES
[2022-11-20 13:19] LABS: Ethanol < 10 mg/dL
--- NOTE | 2022-11-20 13:45 | P.HPCC_ITS ---
History of Present Illness Date of Service: 11/20/22 Attending physician on admission: Tory Morgan Chief Complaint: Altered mental status 72-year-old female longstanding smoker presented with altered mental status prior to which there was fever productive cough shortness of breath and she had acute on chronic hypercarbic and hypoxic respiratory failure no evidence of lower respiratory tract infection by imaging but presumptive upper respiratory tract involvement and she had been for close to a week on azithromycin On BiPAP after several hours the the initially elevated pCO2 of 75 came down into the mid 50s and she eventually woke up appropriate cognitive function intact neurologically Bedside echo showed absolutely normal LV and RV function with no primary valve or pericardial disease The viral respiratory panel was entirely negative and there was clearly no evidence of an infiltrate on the chest CT scan just clearly and anatomically and emphysema with significant bilateral cystic disease Review of Systems Review of Systems: Yes all other systems are reviewed and are negative [facility] Social History Social History Household Members: Spouse Housing: House Do you presently have visiting nurse or other home services: No Alcohol intake: never Patient Tobacco Use Status: Current everyday Tobacco user Tobacco use type: Cigarette Smoked in Last 30 Days: Yes Patient Interested in Nicotine Replacement: No Patient Given Instructions on How to Stop Smoking: Yes Date Education Initiated: 11/20/22 Use of substances other than those prescribed or required for medical reasons: No Currently Displaying Signs/Symptoms of Drug Intoxication Withdrawal: No Have you been hit, kicked, punched, or otherwise hurt by someone within the past year? If so, by whom?: No Do you feel safe in your current relationship?: Yes Is there a partner from a previous relationship who is making you feel unsafe now?: No Are you made to feel afraid or neglected: No Advance Directives: No Advance Directives Information Provided: No Do you have thoughts of harming others: None Recently lost weight without trying: No Eating poorly because of decreased appetite: Yes Nutrition Risks: No Nutritional Risk Patient : No : No Poor oral hygiene: No service: No Meds Allergies Allergy/AdvReac Type Severity Reaction Status Date / Time cat dander [CATS] Allergy Mild sneeze Unverified 12/14/19 17:24 ENVIRONMENTAL Allergy Mild SNEEZING Uncoded 12/14/19 17:24 Medical Tape Allergy Unknown rash Uncoded 08/03/17 00:00 Active Medications: Current Medications Heparin Sodium (Porcine) (Heparin Sodium,Porcine 5,000 Unit/Ml Vial) 5,000 unit SUBCUT Q8H [facility] Home Medications Medication Instructions Recorded Confirmed Last Taken Type azithromycin 250 mg tablet 250 mg PO DAILY 11/20/22 11/20/22 11/19/22 History cholecalciferol (vitamin D3) 25 25 mcg PO DAILY 11/20/22 11/20/22 1 Week Ago History mcg (1,000 unit) tablet (Vitamin ~11/13/22 D3) diphenhydramine 25 1 tab PO BEDTIME PRN sleep or pain 11/20/22 11/20/22 Unknown History mg-acetaminophen 500 mg tablet (Tylenol PM Extra Strength) Physical Exam Vital Signs: Vital Signs: Last Vital Signs Temp 98.8 F 11/20/22 10:21 Pulse 77 11/20/22 10:25 Resp 23 H 11/20/22 10:25 BP 177/101 H 11/20/22 09:54 Pulse Ox 96 11/20/22 09:54 O2 Del Method Non-Rebreather Ma sk 11/20/22 09:54 Oxygen Flow Rate 15 11/20/22 09:54 BMI result Body Mass Index 25.8 Cognitive function and neurologic status is intact Bedside echo with normal cardiac function and normal inferior vena caval size with normal inspiratory collapse he is clinically euvolemic Abdomen soft no organomegaly Lungs with diminished bilateral breath sounds but prolonged expiratory time Results Labs 11/20/22 09:56 11/20/22 09:56 Labs: Laboratory Results - last 24 hr 11/20/22 11/20/22 11/20/22 09:56 09:56 09:56 MCV 101.1 H MCH 32.2 MCHC 31.9 RDW 12.2 Plt Count 319 D MPV 10.0 Immature Gran % (Auto) 1.4 H Neut % (Auto) 71.2 Lymph % (Auto) 14.8 L [place] % (Auto) 12.3 H Eos % (Auto) 0.1 Baso % (Auto) 0.2 Lymph # (Auto) 1.6 [place] # (Auto) 1.3 H Eos # (Auto) 0.0 Baso # (Auto) 0.0 Abs Immat Gran (auto) 0.15 H Absolute Neuts (auto) 7.7 Absolute Nucleated RBC 0.000 Nucleated RBC % (auto) 0.0 PT 12.0 INR 1.0 APTT 27.2 VBG pH VBG pCO2 VBG pO2 VBG HCO3 VBG O2 Saturation VBG Base Excess Anion Gap 12 Estim Creat Clear Calc 77.4 Estimated GFR > 60 Random Glucose 157 H Lactic Acid Calcium 9.8 Total Bilirubin 0.3 AST 30 ALT 60 H Alkaline Phosphatase 81 B-Natriuretic Peptide Total Protein 7.0 Albumin 4.0 Lipase 11 Urine Color Urine Appearance Urine pH Ur Specific [place] Urine Protein Urine Glucose (UA) Urine Ketones Urine Blood Urine Nitrite Ur Leukocyte Esterase Urine RBC Urine WBC Ur Squamous Epith Cells Urine Bacteria Hyaline Casts Ethyl Alcohol COVID-19 (ANUPAM) COVID-19 Clin Com 11/20/22 11/20/22 11/20/22 10:06 10:10 10:10 MCV MCH MCHC RDW Plt Count MPV Immature Gran % (Auto) Neut % (Auto) Lymph % (Auto) [place] % (Auto) Eos % (Auto) Baso % (Auto) Lymph # (Auto) [place] # (Auto) Eos # (Auto) Baso # (Auto) Abs Immat Gran (auto) Absolute Neuts (auto) Absolute Nucleated RBC Nucleated RBC % (auto) PT INR APTT VBG pH 7.31 L VBG pCO2 70 VBG pO2 132 VBG HCO3 35 H VBG O2 Saturation 100.0 VBG Base Excess 6.5 Anion Gap Estim Creat Clear Calc Estimated GFR Random Glucose Lactic Acid 0.8 Calcium Total Bilirubin AST ALT Alkaline Phosphatase B-Natriuretic Peptide 249 H Total Protein Albumin Lipase Urine Color Urine Appearance Urine pH Ur Specific [place] Urine Protein Urine Glucose (UA) Urine Ketones Urine Blood Urine Nitrite Ur Leukocyte Esterase Urine RBC Urine WBC Ur Squamous Epith Cells Urine Bacteria Hyaline Casts Ethyl Alcohol COVID-19 (ANUPAM) COVID-19 Clin Com 11/20/22 11/20/22 11/20/22 10:10 12:56 12:58 MCV MCH MCHC RDW Plt Count MPV Immature Gran % (Auto) Neut % (Auto) Lymph % (Auto) [place] % (Auto) Eos % (Auto) Baso % (Auto) Lymph # (Auto) [place] # (Auto) Eos # (Auto) Baso # (Auto) Abs Immat Gran (auto) Absolute Neuts (auto) Absolute Nucleated RBC Nucleated RBC % (auto) PT INR APTT VBG pH VBG pCO2 VBG pO2 VBG HCO3 VBG O2 Saturation VBG Base Excess Anion Gap Estim Creat Clear Calc Estimated GFR Random Glucose Lactic Acid Calcium Total Bilirubin AST ALT Alkaline Phosphatase B-Natriuretic Peptide Total Protein Albumin Lipase Urine Color Yellow Urine Appearance Clear Urine pH 5.5 Ur Specific [place] 1.025 Urine Protein 100 (2+) H Urine Glucose (UA) Negative Urine Ketones Trace Urine Blood Small (1+) H Urine Nitrite Negative Ur Leukocyte Esterase Negative Urine RBC 11-20 H Urine WBC 6-10 H Ur Squamous Epith Cells 3-5 Urine Bacteria None Seen Hyaline Casts 0-2 Ethyl Alcohol < 10 COVID-19 (ANUPAM) Negative COVID-19 Clin Com See Note 11/20/22 13:07 MCV MCH MCHC RDW Plt Count MPV Immature Gran % (Auto) Neut % (Auto) Lymph % (Auto) [place] % (Auto) Eos % (Auto) Baso % (Auto) Lymph # (Auto) [place] # (Auto) Eos # (Auto) Baso # (Auto) Abs Immat Gran (auto) Absolute Neuts (auto) Absolute Nucleated RBC Nucleated RBC % (auto) PT INR APTT VBG pH 7.30 L VBG pCO2 75 VBG pO2 55 VBG HCO3 37 H VBG O2 Saturation 80.0 VBG Base Excess 8.2 Anion Gap Estim Creat Clear Calc Estimated GFR Random Glucose Lactic Acid Calcium Total Bilirubin AST ALT Alkaline Phosphatase B-Natriuretic Peptide Total Protein Albumin Lipase Urine Color Urine Appearance Urine pH Ur Specific [place] Urine Protein Urine Glucose (UA) Urine Ketones Urine Blood Urine Nitrite Ur Leukocyte Esterase Urine RBC Urine WBC Ur Squamous Epith Cells Urine Bacteria Hyaline Casts Ethyl Alcohol COVID-19 (ANUPAM) COVID-19 Clin Com Imaging Radiologist's Impressions: Impressions Chest X-Ray 11/20/22 10:15 IMPRESSION: Limited exam due to patient positioning. Question increased central bronchovascular markings of the upper lobes versus changes due to overlying chin /artifact. Follow-up chest x-ray should be considered if clinically indicated. Assessment and Plan (1) Acute metabolic encephalopathy: Status: Acute (2) Acute exacerbation of chronic obstructive pulmonary disease: Status: Acute (3) Asthmatic bronchitis: Status: Acute (4) Respiratory failure with hypoxia and hypercapnia: Qualifiers: Chronicity: acute on chronic Qualified Code(s): J96.21 - Acute and chronic respiratory failure with hypoxia; J96.22 - Acute and chronic respiratory failure with hypercapnia Status: Acute Plan Plan is to continue with her bronchodilator treatments and support with BiPAP and then as she slowly improved hopefully wean from daytime BiPAP at least and allow her to eat and then hopefully the introducer to outpatient pulmonary consult Time Spent With Patient Time: Total time managing care of this patient today 45____ minutes.
--- NOTE | 2022-11-20 14:06 | PHA.MEDREC ---
Pharmacy Consult ? Medication Reconciliation Pharmacy has completed the medication reconciliation. Spoke to spouse to confirm meds.
[2022-11-20] MEDS: Heparin Sodium,Porcine 5,000 UNIT/ML VIAL 5000 UNIT SUBCUT ×2 (14:20→20:52)
--- NOTE | 2022-11-20 14:35 | PC.NURSE ---
Patient arousable but goes right back to sleep. Patient not in any pain. Patient has a 20g on right wrist and left antecubital. Respiratory panel just sent. at bedside. tele: sinus rythym 70's. still waiting for results of Ct scan's. Patient ambulates independently usually at home. Long time smoker still currently a smoker. will continue with plan of care.
[2022-11-20 15:01] LABS: Troponin-I High Sensitivity 7.9 ng/L (<3.5-17.0)
[2022-11-20] MEDS: Albuterol/Iprat 2.5/0.5MG 3 ML AMPUL.NEB INHALE ×2 (15:28→19:32)
[2022-11-20 16:01] LABS: Adenovirus PCR Not Detected (Not Detect.); Bordetella parapertussis PCR Not Detected (Not Detect.); Bordetella pertussis PCR Not Detected (Not Detect.); Chlamydia pneumoniae PCR Not Detected (Not Detect.); Coronavirus 229E PCR Not Detected (Not Detect.); Coronavirus HKU1 PCR Not Detected (Not Detect.); Coronavirus NL63 PCR Not Detected (Not Detect.); Coronavirus OC43 PCR Not Detected (Not Detect.); Human metapneumovirus PCR Not Detected (Not Detect.); Influenza A PCR Not Detected (Not Detect.); Influenza B PCR Not Detected (Not Detect.); Mycoplasma pneumoniae PCR Not Detected (Not Detect.); Parainfluenza 1 PCR Not Detected (Not Detect.); Parainfluenza 2 PCR Not Detected (Not Detect.); Parainfluenza 3 PCR Not Detected (Not Detect.); Parainfluenza 4 PCR Not Detected (Not Detect.); RSV PCR Not Detected (Not Detect.); Rhino/Enterovirus PCR Not Detected (Not Detect.); SARS-CoV-2 PCR Not Detected (Not Detect.)
[2022-11-20] MEDS: methylPREDNISolone Sod Succ 125 MG/2 ML VIAL IVPUSH (17:51)
[2022-11-20] MEDS: KCl 20 mEq in 5% Dex/0.45% Sod 20 MEQ/1,000 ML IV.SOLN 80 MEQ IVCONT (17:52)
[2022-11-20 18:29] LABS: Venous Blood Gas Refer to POC result
[2022-11-20 18:29] LABS: VBG Base Excess 9.9 mmol/L; VBG HCO3 35 mmol/L (22-26); VBG pCO2 52 mmHg; VBG pH 7.44 (7.32-7.43); VBG pO2 90 mmHg
[2022-11-20] MEDS: guaiFENesin LA 600 MG TAB.ER.12H PO (22:18)
[2022-11-21] VITALS (33 sets, daily range): BP systolic 105–133; BP diastolic 45–73; PULSE 62–94; RESP 12–34; TEMP 36.3–37.3; O2SAT 90–98; BMI 22.6
[2022-11-21] MEDS: Dextrose 5 % and 0.45 % NaCl 1,000 ML 80 ML IVCONT ×2 (01:01→13:51)
[2022-11-21 01:34] LABS: Amphetamine Screen Urine Not Detected (Not Detect); Barbiturates, Urine Not Detected (Not Detect); Benzodiazepines Screen Urine Not Detected (Not Detect); Cannabinoid Screen Urine Not Detected (Not Detect); Cocaine Screen Urine Not Detected (Not Detect); Fentanyl, urine Not Detected (Not Detect); Opiate Screen Urine Not Detected (Not Detect); Phencyclidine Screen Urine Not Detected (Not Detect)
[2022-11-21] MEDS: methylPREDNISolone Sod Succ 125 MG/2 ML VIAL 60 MG IVPUSH ×2 (04:50→17:56)
[2022-11-21] MEDS: Heparin Sodium,Porcine 5,000 UNIT/ML VIAL 5000 UNIT SUBCUT ×3 (04:52→21:22)
[2022-11-21 05:40] LABS: VBG HCO3 41 mmol/L (22-26); VBG pCO2 66 mmHg; VBG pH 7.39 (7.32-7.43); VBG pO2 51 mmHg
[2022-11-21 05:43] LABS: Venous Blood Gas Refer to POC result
[2022-11-21 06:24] LABS: MANUAL DIFF FLAG NO
[2022-11-21 06:33] LABS: Basophils Percent Auto 0.2 % (0-2); Hematocrit 41.8 % (37.0-47.0); Hemoglobin 13.2 g/dl (12.0-16.0); Imm Gran Abs Auto 0.02 X10*3/uL (0.00-0.03); Imm Gran Pct Auto 0.4 % (0.0-0.4); Lymphocytes Absolute Auto 0.5 X10*3/uL (1.2-4.9); Lymphocytes Percent Auto 8.9 % (20-40); Mean Corpuscular HGB Conc 31.6 g/dl (31.0-35.0); Mean Corpuscular Hemoglobin 31.7 pg (27.0-33.0); Mean Corpuscular Volume 100.5 fL (80.0-98.0); Mean Platelet Volume 10.5 fL (9.4-12.3); Monocytes Absolute Auto 0.2 X10*3/uL (0.1-1.2); Monocytes Percent Auto 3.8 % (2-11); Neutrophils Absolute Auto 4.8 x10*3/uL (2.0-8.3); Neutrophils Percent Auto 86.7 % (45-73); Platelet Count 290 X10*3/uL (160-400); Red Blood Count 4.16 X10*6/uL (4.20-5.50); Red Cell Distribution Width 12.3 % (11.0-16.0); White Blood Count 5.5 X10*3/uL (4.8-10.8)
[2022-11-21 07:25] LABS: Albumin Level 3.4 g/dL (3.5-5.0); Anion Gap 11 (12-20); Blood Urea Nitrogen 11 mg/dL (9-16); Calcium 9.1 mg/dL (8.4-10.2); Carbon Dioxide 34 mmol/L (22-29); Chloride 96 mmol/L (96-108); Creatinine Clr Calc Pharmacy 79.3; Estimated Glomerular Filt Rate > 60; Glucose Random 168 mg/dL (60-115); Magnesium 2.1 mg/dL (1.6-2.6); Phosphorus 2.7 mg/dL (2.7-4.5); Sodium 136 mmol/L (135-145)
[2022-11-21] MEDS: Albuterol/Iprat 2.5/0.5MG 3 ML AMPUL.NEB INHALE ×4 (07:44→20:20)
[2022-11-21] MEDS: cefTRIAXone sodium 1 GM in 0.9 % Sodium Chloride 50 ML IV ×2 (09:17→21:22)
[2022-11-21] MEDS: Azithromycin 500 MG in 0.9 % Sodium Chloride 250 ML 125 MG IV (09:17)
[2022-11-21 11:07] LABS: VBG Base Excess 10.2 mmol/L; VBG HCO3 38 mmol/L (22-26); VBG pCO2 67 mmHg; VBG pH 7.36 (7.32-7.43); VBG pO2 62 mmHg
[2022-11-21 11:25] LABS: Venous Blood Gas Refer to POC result
--- NOTE | 2022-11-21 15:46 | MHC.CM.PN ---
DX COPD exacerbation. She lives with her spouse. She is independent will all functional mobility. A copy of her HCP has been requested. DP Home with family support and transportation.
--- NOTE | 2022-11-21 17:28 | PM.CCPN ---
Subjective Subjective Date of Service: 11/21/22 Interval History: 72-year-old smoking related COPD came in with acute on chronic hypercarbic and hypoxic respiratory failure with what appears to be asthmatic bronchitis currently covered with ceftriaxone and azithromycin but being that she had already been almost a week on the azithromycin without particular success I might consider switching that out for doxycycline She has improved to the point where she was on nasal high-flow for each meal with pCO2 is elevating from approximately 55 while on BiPAP up to 666 while on nasal high-flow but clinically doing well Critical Care Time (minutes): 45 Physical Exam Vital Signs: Vital Signs: Last Vital Signs Temp 99.1 F 11/21/22 15:57 Pulse 82 11/21/22 17:00 Resp 24 H 11/21/22 17:00 BP 117/49 L 11/21/22 17:00 Pulse Ox 95 11/21/22 17:00 O2 Del Method High Flow Nasal C annula 11/21/22 17:00 O2 Flow Rate 35 11/21/22 17:00 FiO2 30 11/21/22 17:00 Oxygen Flow Rate 15 11/20/22 09:54 BMI result Body Mass Index 22.6 Unsupported vital signs 117/49 for a mean of 71 sinus rhythm rate [address]-T changes and oxygen saturation 96% Abdomen soft no organomegaly nontender Lungs still with some prolonged expiratory time but otherwise absent breath sounds no other adventitious sounds Cardiac exam by bedside echo normal No peripheral edema no acrocyanosis and skin is intact Objective Data Labs 11/21/22 05:33 11/21/22 06:56 Labs: Laboratory Results - last 24 hr 11/20/22 11/20/22 11/21/22 12:56 18:25 05:33 WBC 5.5 RBC 4.16 L Hgb 13.2 Hct 41.8 MCV 100.5 H MCH 31.7 MCHC 31.6 RDW 12.3 Plt Count 290 MPV 10.5 Immature Gran % (Auto) 0.4 Neut % (Auto) 86.7 H Lymph % (Auto) 8.9 L [place] % (Auto) 3.8 Eos % (Auto) 0.0 Baso % (Auto) 0.2 Lymph # (Auto) 0.5 L [place] # (Auto) 0.2 Eos # (Auto) 0.0 Baso # (Auto) 0.0 Abs Immat Gran (auto) 0.02 Absolute Neuts (auto) 4.8 Absolute Nucleated RBC 0.000 Nucleated RBC % (auto) 0.0 VBG pH 7.44 H VBG pCO2 52 VBG pO2 90 VBG HCO3 35 H VBG O2 Saturation 99.0 VBG Base Excess 9.9 Sodium Potassium Chloride Carbon Dioxide Anion Gap BUN Creatinine Estim Creat Clear Calc Estimated GFR Random Glucose Calcium Phosphorus Magnesium Albumin Urine Opiates Screen Not Detected Urine Fentanyl Screen Not Detected Ur Barbiturates Screen Not Detected Ur Phencyclidine Scrn Not Detected Ur Amphetamines Screen Not Detected U Benzodiazepines Scrn Not Detected Urine Cocaine Screen Not Detected U Marijuana (THC) Screen Not Detected 11/21/22 11/21/22 11/21/22 05:34 06:56 11:03 WBC RBC Hgb Hct MCV MCH MCHC RDW Plt Count MPV Immature Gran % (Auto) Neut % (Auto) Lymph % (Auto) [place] % (Auto) Eos % (Auto) Baso % (Auto) Lymph # (Auto) [place] # (Auto) Eos # (Auto) Baso # (Auto) Abs Immat Gran (auto) Absolute Neuts (auto) Absolute Nucleated RBC Nucleated RBC % (auto) VBG pH 7.39 7.36 VBG pCO2 66 67 VBG pO2 51 62 VBG HCO3 41 H 38 H VBG O2 Saturation 76.0 88.0 VBG Base Excess 13.0 10.2 Sodium 136 Potassium 5.0 Chloride 96 Carbon Dioxide 34 H Anion Gap 11 L BUN 11 Creatinine 0.56 Estim Creat Clear Calc 79.3 Estimated GFR > 60 Random Glucose 168 H Calcium 9.1 D Phosphorus 2.7 Magnesium 2.1 Albumin 3.4 L Urine Opiates Screen Urine Fentanyl Screen Ur Barbiturates Screen Ur Phencyclidine Scrn Ur Amphetamines Screen U Benzodiazepines Scrn Urine Cocaine Screen U Marijuana (THC) Screen Microbiology Microbiology Results: Microbiology 11/20/22 Unknown Urine clean catch - Urine loza top Urine Culture - Final No growth. 11/20/22 10:10 Blood - Venous Blood Culture - Preliminary No growth after 24 hours. 11/20/22 09:56 Blood - Venous Blood Culture - Preliminary No growth after 24 hours. 11/20/22 22:12 Sputum - Expectorated Gram Stain - Final 11/20/22 22:12 Sputum - Expectorated Sputum Culture - Final Progress Note: A&P Assessment and plan (1) Asthmatic bronchitis: Status: Acute (2) Acute metabolic encephalopathy: Status: Acute (3) Acute exacerbation of chronic obstructive pulmonary disease: Status: Acute (4) Respiratory failure with hypoxia and hypercapnia: Status: Acute (5) Pneumonia: Status: Acute (6) Lethargic: Status: Acute Plan Plan is to switch out the Zithromax for doxycycline continue other treatments as above she will spend the night resting on BiPAP Quality Stroke Does the patient have a stroke diagnosis?: No VTE Prior VTE?: No VTE Risk Level:: Medical - moderate - high VTE Device Contraindication: N/A - Device Ordered VTE Drug Contraindication: N/A - Med Ordered
[2022-11-21] MEDS: Pantoprazole Sodium 40 MG/10 ML VIAL IVPUSH (17:55)
[2022-11-22] VITALS (31 sets, daily range): BP systolic 110–143; BP diastolic 50–72; PULSE 60–91; RESP 18–30; TEMP 36.2–36.8; O2SAT 93–98; BMI 22.6
[2022-11-22] MEDS: Dextrose 5 % and 0.45 % NaCl 1,000 ML 80 ML IVCONT ×2 (01:59→13:54)
[2022-11-22 04:45] LABS: VBG Base Excess 10.8 mmol/L; VBG HCO3 37 mmol/L (22-26); VBG pCO2 58 mmHg; VBG pH 7.41 (7.32-7.43); VBG pO2 72 mmHg
[2022-11-22 04:47] LABS: Venous Blood Gas Refer to POC result
[2022-11-22] MEDS: Heparin Sodium,Porcine 5,000 UNIT/ML VIAL 5000 UNIT SUBCUT ×3 (05:31→21:39)
[2022-11-22] MEDS: Pantoprazole Sodium 40 MG/10 ML VIAL IVPUSH ×2 (05:31→15:58)
[2022-11-22] MEDS: methylPREDNISolone Sod Succ 125 MG/2 ML VIAL 60 MG IVPUSH ×2 (05:31→17:41)
[2022-11-22 06:02] LABS: Albumin Level 3.4 g/dL (3.5-5.0); Anion Gap 12 (12-20); Blood Urea Nitrogen 10 mg/dL (9-16); Calcium 9.4 mg/dL (8.4-10.2); Carbon Dioxide 32 mmol/L (22-29); Chloride 101 mmol/L (96-108); Creatinine Clr Calc Pharmacy 77.9; Estimated Glomerular Filt Rate > 60; Glucose Random 133 mg/dL (60-115); Magnesium 2.3 mg/dL (1.6-2.6); Potassium 4.8 mmol/L (3.3-5.1); Sodium 140 mmol/L (135-145)
[2022-11-22 07:06] LABS: Basophils Percent Auto 0.1 % (0-2); Hemoglobin 13.6 g/dl (12.0-16.0); Imm Gran Abs Auto 0.12 X10*3/uL (0.00-0.03); Imm Gran Pct Auto 0.8 % (0.0-0.4); Lymphocytes Absolute Auto 0.7 X10*3/uL (1.2-4.9); Lymphocytes Percent Auto 4.3 % (20-40); MANUAL DIFF FLAG SCAN; Mean Corpuscular HGB Conc 31.6 g/dl (31.0-35.0); Mean Corpuscular Hemoglobin 32.2 pg (27.0-33.0); Mean Corpuscular Volume 101.7 fL (80.0-98.0); Mean Platelet Volume 10.2 fL (9.4-12.3); Monocytes Absolute Auto 0.7 X10*3/uL (0.1-1.2); Monocytes Percent Auto 4.4 % (2-11); Neutrophils Percent Auto 90.4 % (45-73); Platelet Count 321 X10*3/uL (160-400); Red Blood Count 4.23 X10*6/uL (4.20-5.50); Red Cell Distribution Width 12.5 % (11.0-16.0); SCAN SMEAR FLAG 1; White Blood Count 15.5 X10*3/uL (4.8-10.8)
[2022-11-22 07:28] LABS: SLIDE REVIEW VERIFIED
[2022-11-22] MEDS: Albuterol/Iprat 2.5/0.5MG 3 ML AMPUL.NEB INHALE ×4 (08:38→19:13)
[2022-11-22] MEDS: cefTRIAXone sodium 1 GM in 0.9 % Sodium Chloride 50 ML IV ×2 (09:34→21:39)
[2022-11-22] MEDS: Doxycycline Hyclate 100 MG in 0.9 % Sodium Chloride 250 ML 166.67 MG IV ×2 (09:36→20:04)
[2022-11-22 11:37] LABS: VBG Base Excess 6.5 mmol/L; VBG HCO3 36 mmol/L (22-26); VBG pCO2 75 mmHg; VBG pH 7.28 (7.32-7.43); VBG pO2 48 mmHg
[2022-11-22 11:45] LABS: Venous Blood Gas Refer to POC result
--- NOTE | 2022-11-22 12:34 | P.PNCC_ITS ---
Subjective Subjective Date of Service: 11/22/22 Interval History: 72-year-old female with COPD came in with altered mental status following a week of what sounds like a febrile respiratory illness which she became lethargic with increased respiratory effort she came in was in acute on chronic hypercarbic and hypoxic respiratory failure no lower respiratory tract infiltrate by CT scan and there was definitely no evidence of pulmonary edema despite a borderline BNP of 249 bedside echo demonstrating globally normal systolic left heart wall motion and she had normal inferior vena caval diameter or with normal inspiratory collapse so no indication of hypervolemia and treated still as a community-acquired and infection but having been on Zithromax from her primary care throughout the week and failing we made it ceftriaxone and dex as doxycycline in combination and she is receiving her albuterol treatments and today she came down to her chronic CO2 level which was about 58 but 3 hours of nasal cannula and she developed an acute respiratory acidosis with pCO2 of 75 gave her a a brief rest on BiPAP before eating lunch Although I was hoping to send her to [facility]U today she still needs daytime p.r.n. BiPAP treatment Critical Care Time (minutes): 35 Physical Exam Vital Signs: Vital Signs: Last Vital Signs Temp 97.1 F 11/22/22 12:00 Pulse 76 11/22/22 12:00 Resp 24 H 11/22/22 12:00 BP 124/58 L 11/22/22 12:00 Pulse Ox 96 11/22/22 12:00 O2 Del Method BiPAP 11/22/22 12:00 O2 Flow Rate 3 11/22/22 11:00 FiO2 30 11/22/22 12:00 Oxygen Flow Rate 15 11/20/22 09:54 BMI result Body Mass Index 22.6 Vital signs are stable awake alert good cognitive and neurological function Good bilateral carotid upstrokes and no neck vein distension no gallops Diminished bilateral breath sounds and still has some bilateral scattered wheezes Abdomen soft no organomegaly No peripheral edema Objective Data Labs 11/22/22 04:40 11/22/22 04:40 Labs: Laboratory Results - last 24 hr 11/22/22 11/22/22 11/22/22 04:40 04:40 04:40 WBC 15.5 H RBC 4.23 Hgb 13.6 Hct 43.0 MCV 101.7 H MCH 32.2 MCHC 31.6 RDW 12.5 Plt Count 321 MPV 10.2 Immature Gran % (Auto) 0.8 H Neut % (Auto) 90.4 H Lymph % (Auto) 4.3 L [place] % (Auto) 4.4 Eos % (Auto) 0.0 Baso % (Auto) 0.1 Lymph # (Auto) 0.7 L [place] # (Auto) 0.7 Eos # (Auto) 0.0 Baso # (Auto) 0.0 Abs Immat Gran (auto) 0.12 H Absolute Neuts (auto) 14.0 H Absolute Nucleated RBC 0.000 Nucleated RBC % (auto) 0.0 Smear Tech's Comments VERIFIED VBG pH 7.41 VBG pCO2 58 VBG pO2 72 VBG HCO3 37 H VBG O2 Saturation 95.0 VBG Base Excess 10.8 Sodium 140 Potassium 4.8 Chloride 101 Carbon Dioxide 32 H Anion Gap 12 BUN 10 Creatinine 0.57 Estim Creat Clear Calc 77.9 Estimated GFR > 60 Random Glucose 133 H Calcium 9.4 Phosphorus 3.0 Magnesium 2.3 Albumin 3.4 L 11/22/22 11:33 WBC RBC Hgb Hct MCV MCH MCHC RDW Plt Count MPV Immature Gran % (Auto) Neut % (Auto) Lymph % (Auto) [place] % (Auto) Eos % (Auto) Baso % (Auto) Lymph # (Auto) [place] # (Auto) Eos # (Auto) Baso # (Auto) Abs Immat Gran (auto) Absolute Neuts (auto) Absolute Nucleated RBC Nucleated RBC % (auto) Smear Tech's Comments VBG pH 7.28 L VBG pCO2 75 VBG pO2 48 VBG HCO3 36 H VBG O2 Saturation 70.0 VBG Base Excess 6.5 Sodium Potassium Chloride Carbon Dioxide Anion Gap BUN Creatinine Estim Creat Clear Calc Estimated GFR Random Glucose Calcium Phosphorus Magnesium Albumin Microbiology Microbiology Results: Microbiology 11/20/22 10:10 Blood - Venous Blood Culture - Preliminary No growth after 48 hours. 11/20/22 09:56 Blood - Venous Blood Culture - Preliminary No growth after 48 hours. 11/20/22 Unknown Urine clean catch - Urine loza top Urine Culture - Final No growth. 11/20/22 22:12 Sputum - Expectorated Gram Stain - Final 11/20/22 22:12 Sputum - Expectorated Sputum Culture - Final Progress Note: A&P Assessment and plan (1) Asthmatic bronchitis: Status: Acute (2) Acute metabolic encephalopathy: Status: Acute (3) Acute exacerbation of chronic obstructive pulmonary disease: Status: Acute (4) Respiratory failure with hypoxia and hypercapnia: Status: Acute (5) Lethargic: Status: Acute Plan The plan is the continued need besides nocturnal for p.r.n. daytime BiPAP but between meals we may may be able to try high-flow nasal and see if that at least preserved her pCO2 is in the mid 60s and no greater Quality Stroke Does the patient have a stroke diagnosis?: No VTE Prior VTE?: No VTE Risk Level:: Medical - moderate - high VTE Device Contraindication: N/A - Device Ordered VTE Drug Contraindication: N/A - Med Ordered
[2022-11-22 15:24] LABS: VBG Base Excess 10.1 mmol/L; VBG HCO3 36 mmol/L (22-26); VBG pCO2 55 mmHg; VBG pH 7.42 (7.32-7.43); VBG pO2 74 mmHg
[2022-11-22 16:03] LABS: Procalcitonin 0.02 ng/mL
[2022-11-22 17:30] LABS: Venous Blood Gas Refer to POC result
[2022-11-23] VITALS (24 sets, daily range): BP systolic 114–146; BP diastolic 56–71; PULSE 62–101; RESP 18–31; TEMP 36.4–36.8; O2SAT 90–96; BMI 24.0
[2022-11-23] MEDS: diphenhydrAMINE HCL 50 MG/ML VIAL 12.5 MG IVPUSH ×2 (00:13→22:20)
[2022-11-23] MEDS: Dextrose 5 % and 0.45 % NaCl 1,000 ML 80 ML IVCONT (02:34)
[2022-11-23 04:23] LABS: VBG Base Excess 8.6 mmol/L; VBG HCO3 33 mmol/L (22-26); VBG pCO2 48 mmHg; VBG pH 7.44 (7.32-7.43); VBG pO2 80 mmHg
[2022-11-23 04:29] LABS: Venous Blood Gas Refer to POC result
[2022-11-23 04:38] LABS: MANUAL DIFF FLAG NO
[2022-11-23 04:39] LABS: Basophils Percent Auto 0.1 % (0-2); Hematocrit 39.4 % (37.0-47.0); Hemoglobin 12.6 g/dl (12.0-16.0); Imm Gran Abs Auto 0.17 X10*3/uL (0.00-0.03); Imm Gran Pct Auto 1.4 % (0.0-0.4); Lymphocytes Absolute Auto 0.7 X10*3/uL (1.2-4.9); Lymphocytes Percent Auto 5.6 % (20-40); Mean Corpuscular Hemoglobin 32.1 pg (27.0-33.0); Mean Corpuscular Volume 100.3 fL (80.0-98.0); Mean Platelet Volume 9.9 fL (9.4-12.3); Monocytes Absolute Auto 0.5 X10*3/uL (0.1-1.2); Monocytes Percent Auto 4.3 % (2-11); Neutrophils Absolute Auto 10.9 x10*3/uL (2.0-8.3); Neutrophils Percent Auto 88.6 % (45-73); Platelet Count 280 X10*3/uL (160-400); Red Blood Count 3.93 X10*6/uL (4.20-5.50); Red Cell Distribution Width 12.6 % (11.0-16.0); White Blood Count 12.3 X10*3/uL (4.8-10.8)
[2022-11-23 05:04] LABS: Albumin Level 2.7 g/dL (3.5-5.0); Anion Gap 8 (12-20); Blood Urea Nitrogen 9 mg/dL (9-16); Calcium 7.7 mg/dL (8.4-10.2); Carbon Dioxide 29 mmol/L (22-29); Chloride 99 mmol/L (96-108); Creatinine Clr Calc Pharmacy 66.2; Estimated Glomerular Filt Rate > 60; Glucose Random 671 mg/dL (60-115); Magnesium 1.8 mg/dL (1.6-2.6); Phosphorus 2.4 mg/dL (2.7-4.5); Sodium 132 mmol/L (135-145)
[2022-11-23 05:11] LABS: Glucose, Whole Blood 125 mg/dL (60-115)
[2022-11-23] MEDS: methylPREDNISolone Sod Succ 125 MG/2 ML VIAL 60 MG IVPUSH (05:16)
[2022-11-23] MEDS: Heparin Sodium,Porcine 5,000 UNIT/ML VIAL 5000 UNIT SUBCUT ×3 (05:16→22:12)
[2022-11-23] MEDS: Pantoprazole Sodium 40 MG/10 ML VIAL IVPUSH ×2 (05:16→15:31)
[2022-11-23] MEDS: Albuterol/Iprat 2.5/0.5MG 3 ML AMPUL.NEB INHALE ×4 (07:51→19:01)
--- NOTE | 2022-11-23 09:47 | P.EN_ITS ---
Event Note Date of Service: 11/23/22 Event Note: ICU transfer. Discussed with high lift operator. Patient admitted for acute hypoxic respiratory failure secondary to COPD exacerbation requiring BiPAP. Still on 1 L nasal cannula. Will transfer to medical floor. Time Spent With Patient Time: Total time managing care of this patient today ____ minutes.
[2022-11-23] MEDS: Azithromycin 250 MG TABLET PO (10:21)
[2022-11-23] MEDS: predniSONE 20 MG TABLET 40 MG PO (10:21)
[2022-11-23] MEDS: cefTRIAXone sodium 1 GM in 0.9 % Sodium Chloride 50 ML IV ×2 (10:22→22:13)
--- NOTE | 2022-11-23 10:49 | PM.CCPN ---
Subjective Subjective Date of Service: 11/23/22 Interval History: 72-year-old lady recent 50+ pack-year smoker with likely underlying undiagnosed moderate to severe COPD with CO2 retention admitted on 11/20/2022 with acute hypoxic and hypercapnic respiratory failure requiring BiPAP support Secondary to COPD exacerbation, now titrated off. No events overnight. Critical Care Time (minutes): 0 Physical Exam Vital Signs: Vital Signs: Last Vital Signs Temp 97.6 F 11/23/22 08:00 Pulse 78 11/23/22 10:00 Resp 20 11/23/22 10:00 BP 144/67 H 11/23/22 10:00 Pulse Ox 92 11/23/22 10:00 O2 Del Method Nasal Cannula 11/23/22 10:00 O2 Flow Rate 1 11/23/22 10:00 FiO2 30 11/23/22 08:00 Oxygen Flow Rate 15 11/20/22 09:54 BMI result Body Mass Index 24.0 Const: General: no acute distress, alert and awake Eyes: Sclerae: sclerae normal EOM: EOMs intact bilaterally Neck: Neck: Yes no lymphadenopathy, Yes trachea midline and Yes supple Resp: Effort & Inspection: normal respiratory effort and no respiratory distress Auscultation: clear to auscultation bilaterally Cardio: Rate: regular rate Rhythm: regular rhythm Heart sounds: no gallops, no murmurs and no rubs GI: Palpation (GI): Soft to palpation and Other GI palpation findings present ( Nontender) Auscultation: normal bowel sounds Extrem: General: Yes no pedal edema, No clubbing and No cyanosis Objective Data Labs 11/23/22 04:14 11/23/22 04:14 Labs: Laboratory Results - last 24 hr 11/22/22 11/22/22 11/22/22 11:33 15:13 15:19 WBC RBC Hgb Hct MCV MCH MCHC RDW Plt Count MPV Immature Gran % (Auto) Neut % (Auto) Lymph % (Auto) [place] % (Auto) Eos % (Auto) Baso % (Auto) Lymph # (Auto) [place] # (Auto) Eos # (Auto) Baso # (Auto) Abs Immat Gran (auto) Absolute Neuts (auto) Absolute Nucleated RBC Nucleated RBC % (auto) VBG pH 7.28 L 7.42 VBG pCO2 75 55 VBG pO2 48 74 VBG HCO3 36 H 36 H VBG O2 Saturation 70.0 95.0 VBG Base Excess 6.5 10.1 Sodium Potassium Chloride Carbon Dioxide Anion Gap BUN Creatinine Estim Creat Clear Calc Estimated GFR POC Glucose Random Glucose Calcium Phosphorus Magnesium Albumin Procalcitonin 0.02 11/23/22 11/23/22 11/23/22 04:14 04:14 04:19 WBC 12.3 H RBC 3.93 L Hgb 12.6 Hct 39.4 MCV 100.3 H MCH 32.1 MCHC 32.0 RDW 12.6 Plt Count 280 MPV 9.9 Immature Gran % (Auto) 1.4 H Neut % (Auto) 88.6 H Lymph % (Auto) 5.6 L [place] % (Auto) 4.3 Eos % (Auto) 0.0 Baso % (Auto) 0.1 Lymph # (Auto) 0.7 L [place] # (Auto) 0.5 Eos # (Auto) 0.0 Baso # (Auto) 0.0 Abs Immat Gran (auto) 0.17 H Absolute Neuts (auto) 10.9 H Absolute Nucleated RBC 0.000 Nucleated RBC % (auto) 0.0 VBG pH 7.44 H VBG pCO2 48 VBG pO2 80 VBG HCO3 33 H VBG O2 Saturation 98.0 VBG Base Excess 8.6 Sodium 132 L Potassium 4.0 Chloride 99 Carbon Dioxide 29 Anion Gap 8 L BUN 9 Creatinine 0.67 Estim Creat Clear Calc 66.2 Estimated GFR > 60 POC Glucose Random Glucose 671 H* Calcium 7.7 L D Phosphorus 2.4 L Magnesium 1.8 Albumin 2.7 L Procalcitonin 11/23/22 05:08 WBC RBC Hgb Hct MCV MCH MCHC RDW Plt Count MPV Immature Gran % (Auto) Neut % (Auto) Lymph % (Auto) [place] % (Auto) Eos % (Auto) Baso % (Auto) Lymph # (Auto) [place] # (Auto) Eos # (Auto) Baso # (Auto) Abs Immat Gran (auto) Absolute Neuts (auto) Absolute Nucleated RBC Nucleated RBC % (auto) VBG pH VBG pCO2 VBG pO2 VBG HCO3 VBG O2 Saturation VBG Base Excess Sodium Potassium Chloride Carbon Dioxide Anion Gap BUN Creatinine Estim Creat Clear Calc Estimated GFR POC Glucose 125 H Random Glucose Calcium Phosphorus Magnesium Albumin Procalcitonin Microbiology Microbiology Results: Microbiology 11/20/22 10:10 Blood - Venous Blood Culture - Preliminary No growth after 48 hours. 11/20/22 09:56 Blood - Venous Blood Culture - Preliminary No growth after 48 hours. 11/20/22 Unknown Urine clean catch - Urine loza top Urine Culture - Final No growth. 11/20/22 22:12 Sputum - Expectorated Gram Stain - Final 11/20/22 22:12 Sputum - Expectorated Sputum Culture - Final Progress Note: A&P Assessment and plan (1) Acute exacerbation of chronic obstructive pulmonary disease: Status: Acute (2) Respiratory failure with hypoxia and hypercapnia: Status: Acute (3) Acute bronchitis: Status: Acute Plan Assessment: 72-year-old lady admitted with acute hypoxic and hypercapnic respiratory failure likely secondary to underlying undiagnosed moderate to severe COPD exacerbation with an acute bronchitis briefly requiring BiPAP support Plan: Neuro: No acute issues. Cardiac: No acute issues. Pulmonary: acute hypoxic and hypercapnic respiratory failure secondary to likely COPD exacerbation initially requiring BiPAP support, now titrated off. Continue on nebulized bronchodilators, taper off systemic glucocorticoids. Ceftriaxone and azithromycin for 5 days. Will require outpatient pulmonary follow-up. Renal: No acute issues. Endo: No acute issues. GI: No acute issues. ID: No acute issues Heme/Onc: No acute issues. Psych: No acute issues. Miscellaneous: No acute issues. Prophylaxis: Heparin Diet: regular Quality Stroke Does the patient have a stroke diagnosis?: No VTE Prior VTE?: No VTE Risk Level:: Medical - moderate - high VTE Device Contraindication: N/A - Device Ordered VTE Drug Contraindication: N/A - Med Ordered
--- NOTE | 2022-11-23 15:06 | MHC.CM.PN ---
Pt scheduled [place] [facility] [place]/C plan is for a return to home w/family and outpt f/u. CM will follow
[2022-11-24] VITALS (8 sets, daily range): BP systolic 125–143; BP diastolic 61–72; PULSE 67–95; RESP 15–20; TEMP 36.2–36.9; O2SAT 85–96
[2022-11-24] MEDS: Heparin Sodium,Porcine 5,000 UNIT/ML VIAL 5000 UNIT SUBCUT (05:41)
[2022-11-24] MEDS: Pantoprazole Sodium 40 MG/10 ML VIAL IVPUSH (05:41)
[2022-11-24] MEDS: polyethylene glycoL 3350 17 GM POWD.PACK PO (05:55)
[2022-11-24 06:01] LABS: MANUAL DIFF FLAG NO
[2022-11-24 06:05] LABS: Venous Blood Gas Refer to POC result
[2022-11-24 06:06] LABS: VBG Base Excess 14.3 mmol/L; VBG HCO3 40 mmol/L (22-26); VBG pCO2 56 mmHg; VBG pH 7.46 (7.32-7.43); VBG pO2 80 mmHg
[2022-11-24 06:06] LABS: Basophils Percent Auto 0.1 % (0-2); Eosinophils Percent Auto 0.1 % (0-4); Hematocrit 41.8 % (37.0-47.0); Hemoglobin 13.5 g/dl (12.0-16.0); Imm Gran Abs Auto 0.16 X10*3/uL (0.00-0.03); Imm Gran Pct Auto 1.5 % (0.0-0.4); Lymphocytes Absolute Auto 1.6 X10*3/uL (1.2-4.9); Lymphocytes Percent Auto 14.8 % (20-40); Mean Corpuscular HGB Conc 32.3 g/dl (31.0-35.0); Mean Corpuscular Hemoglobin 31.8 pg (27.0-33.0); Mean Corpuscular Volume 98.4 fL (80.0-98.0); Mean Platelet Volume 9.7 fL (9.4-12.3); Monocytes Absolute Auto 0.8 X10*3/uL (0.1-1.2); Monocytes Percent Auto 7.3 % (2-11); Neutrophils Percent Auto 76.2 % (45-73); Platelet Count 289 X10*3/uL (160-400); Red Blood Count 4.25 X10*6/uL (4.20-5.50); White Blood Count 10.5 X10*3/uL (4.8-10.8)
[2022-11-24 06:17] LABS: Albumin Level 3.1 g/dL (3.5-5.0); Anion Gap 10 (12-20); Blood Urea Nitrogen 13 mg/dL (9-16); Calcium 9.3 mg/dL (8.4-10.2); Carbon Dioxide 34 mmol/L (22-29); Chloride 102 mmol/L (96-108); Creatinine Clr Calc Pharmacy 71.6; Estimated Glomerular Filt Rate > 60; Glucose Random 89 mg/dL (60-115); Magnesium 2.1 mg/dL (1.6-2.6); Phosphorus 3.7 mg/dL (2.7-4.5); Potassium 4.4 mmol/L (3.3-5.1); Sodium 142 mmol/L (135-145)
[2022-11-24] MEDS: Albuterol/Iprat 2.5/0.5MG 3 ML AMPUL.NEB INHALE ×2 (07:44→11:29)
[2022-11-24] MEDS: Azithromycin 250 MG TABLET PO (08:43)
[2022-11-24] MEDS: predniSONE 20 MG TABLET 40 MG PO (08:43)
[2022-11-24] MEDS: cefTRIAXone sodium 1 GM in 0.9 % Sodium Chloride 50 ML IV (08:58)
--- NOTE | 2022-11-24 11:09 | P.DS_ITS ---
DS: Providers Provider Date of Service: 11/24/22 Date of admission: 11/20/22 13:39 Primary care physician: Zach Dow MD DS: Diagnosis Discharge Diagnosis (1) Acute exacerbation of chronic obstructive pulmonary disease: Status: Acute (2) Respiratory failure with hypoxia and hypercapnia: Status: Acute (3) Acute bronchitis: Status: Acute DS: Summary Hospital Course Hospital Course: history and physical as per admitting provider. 72-year-old female longstanding smoker presented with altered mental status prior to which there was fever productive cough shortness of breath and she had acute on chronic hypercarbic and hypoxic respiratory failure no evidence of lower respiratory tract infection by imaging but presumptive upper respiratory tract involvement and she had been for close to a week on azithromycin. On BiPAP after several hours the the initially elevated pCO2 of 75 came down into the mid 50s and she eventually woke up appropriate cognitive function intact neurologically Bedside echo showed absolutely normal LV and RV function with no primary valve or pericardial disease The viral respiratory panel was entirely negative and there was clearly no evidence of an infiltrate on the chest CT scan just clearly and anatomically and emphysema with significant bilateral cystic disease 72-year-old woman treated for acute hypoxic and hypercarbic respiratory failure secondary to COPD exacerbation with emphysema. Patient was treated on BiPAP in the ICU initially with a decrease in her PC O2. Patient has a history of cigarette smoking. Prior to coming to the ER she had complaints of shortness of breath and was started on azithromycin at home but had become incoherent . Apparently she was 65% on room air upon arrival to the ER. She was treated with both BiPAP and high-flow oxygen. Chest CT showed emphysema with bullous disease and mucus impaction. She was treated with IV Rocephin and azithromycin, prednisone and scheduled DuoNebs. Home O2 evaluation yielded a need for 2 L nasal cannula with ambulation. At this time patient is stable for discharge home with home oxygen. She should follow-up with the stave machine tender for any further diagnostic testing that needs to be done regarding her emphysema and hypercarbic respiratory failure. Smoking cessation was discussed and nicotine replacement therapy ordered. Time Spent with Patient Time attestation: Total time managing care of this patient today ____ minutes. Discharge coordination time: Greater than 30 minutes Quality: Safe Use of Opioids Does Pt have an Active Cancer Diagnosis on the Problem List?: No Quality: Stroke Does the patient have a stroke diagnosis?: No Physical Exam Vital Signs: Vital Signs: Last Vital Signs Temp 97.1 F 11/24/22 06:56 Pulse 67 11/24/22 08:25 Resp 20 11/24/22 07:46 BP 135/70 11/24/22 06:56 Pulse Ox 94 11/24/22 06:56 O2 Del Method Nasal Cannula 11/24/22 06:56 O2 Flow Rate 2 11/24/22 06:56 FiO2 30 11/23/22 08:00 Oxygen Flow Rate 15 11/20/22 09:54 BMI result Body Mass Index 24.0 Appearing in no acute distress head is normocephalic atraumatic eyes pupils are PERRLA sclera is anicteric mouth throat mucous membranes are intact and moist neck is supple no lymphadenopathy, no JVD noted lung sounds rhonchi heart regular rate rhythm, clear S1, S2 positive bowel sounds, abdomen is soft, nontender neuro patient is alert x3, no focal deficits DS: Data Data Completed and Pending Labs on day of discharge: Laboratory Results - last 24 hr 11/24/22 11/24/22 11/24/22 05:55 05:55 06:02 WBC 10.5 RBC 4.25 Hgb 13.5 Hct 41.8 MCV 98.4 H MCH 31.8 MCHC 32.3 RDW 13.0 Plt Count 289 MPV 9.7 Immature Gran % (Auto) 1.5 H Neut % (Auto) 76.2 H Lymph % (Auto) 14.8 L [place] % (Auto) 7.3 Eos % (Auto) 0.1 Baso % (Auto) 0.1 Lymph # (Auto) 1.6 [place] # (Auto) 0.8 Eos # (Auto) 0.0 Baso # (Auto) 0.0 Abs Immat Gran (auto) 0.16 H Absolute Neuts (auto) 8.0 Absolute Nucleated RBC 0.000 Nucleated RBC % (auto) 0.0 VBG pH 7.46 H VBG pCO2 56 VBG pO2 80 VBG HCO3 40 H VBG O2 Saturation 96.0 VBG Base Excess 14.3 Sodium 142 Potassium 4.4 Chloride 102 Carbon Dioxide 34 H Anion Gap 10 L BUN 13 Creatinine 0.62 Estim Creat Clear Calc 71.6 Estimated GFR > 60 Random Glucose 89 Calcium 9.3 D Phosphorus 3.7 Magnesium 2.1 Albumin 3.1 L Preliminary micro results at discharge 11/20/22 10:10 Blood Culture - Preliminary Blood - Venous No growth after 48 hours. 11/20/22 09:56 Blood Culture - Preliminary Blood - Venous No growth after 48 hours. Discharge Plan Discharge Anticipated Discharge Date/Time: 11/24/22 11:04 Patient Disposition: Home Health Service Discharge Diagnosis: COPD exacerbation Acute hypoxic and hypercarbic respiratory failure requiring BiPAP Emphysema Smoker Referrals: Alexis QUINTANA [Outside] - 3-5 Days (home services for [place]- a nurse will call to you to set up first visit) Zach Dow MD [Primary Care Provider] - 1 Week Erick Packer MD [Physician] - 1 Week Discharge Medications: New azithromycin 250 mg Tablet 250 mg PO Q24H Qty: 8 0RF cefuroxime axetil 500 mg tablet 500 mg PO BID Qty: 8 0RF prednisone 10 mg tablet See Taper PO DIRECTED Qty: 30 0RF Taper: Prednisone 40 mg daily for 3 Days and 0 Hour 30 mg daily for 3 Days and 0 Hour 20 mg daily for 3 Days and 0 Hour 10 mg daily for 3 Days and 0 Hour Rx Instructions: see taper instructions guaifenesin [Mucinex] 600 mg tablet extended release 12hr 600 mg PO Q12H PRN (Reason: congestion) Qty: 7 0RF nicotine [Nicoderm CQ] 14 mg/24 hr patch 24 hour 1 patch transdermal DAILY Qty: 28 0RF Continued diphenhydramine-acetaminophen [Tylenol PM Extra Strength] 25-500 mg Tablet 1 tab PO BEDTIME PRN (Reason: sleep or pain) cholecalciferol (vitamin D3) [Vitamin D3] 25 mcg (1,000 unit) Tablet 25 mcg PO DAILY Discontinued azithromycin 250 mg tablet 250 mg PO DAILY Rx Instructions: END DATE: 11/21/22 Discharge Orders: Discharge Order (Routine); Ordered 11/24/22 Ordered By: Jacqueline Rodriguez Diet: Advance to usual diet Activity on Discharge: As tolerated Stand Alone Forms: Patient Portal Discharge page Care Plan Goals: stop smoking cigarettes/using tobacco products Health Concerns: COPD exacerbation Acute hypoxic and hypercarbic respiratory failure requiring BiPAP Emphysema Smoker Plan of Treatment: Follow-up with stave machine tender for further diagnostic workup of emphysema as needed You will be discharged on home oxygen, 2 L with activity( do not use cigarettes around oxygen) Assessment: see discharge summary Patient Instructions: How to Stop Smoking (DC)
--- NOTE | 2022-11-24 11:22 | MHC.CM.PN ---
DP: PT HAS BEEN MEDICALLY CLEARED FOR DC HOME WITH NEW [facility] SERVICES. [facility] HAS BEEN NOTIFIED OF TODAY'S DC. SPOUSE AT BEDSIDE AND WILL TRANSPORT HOME.
--- NOTE | 2022-11-24 11:31 | P.F2F_ITS ---
Service Date Service Date: 11/24/22 Encounter Date of encounter: 11/24/22 Reasons for Services Signs and symptoms assessed: acute hypoxic and hypercarbic respiratory failure secondary to emphysema / COPD exacerbation Reason for senior living: CV/CP assess and/or care and other ( new to oxygen therapy) Homebound: Leaving the home is medically contraindicated at this time without the asist of a device and/or another person due th the listed conditions above and below. Reason homebound: unsteady gait / fall risk and other ( shortness of breath with activity) Certification: Based on the above findings, I certify that this patient is confined to the home and needs intermittent senior living care, physical therapy and/or speech therapy, or continues to need occupational therapy. The patient is under my care, and I have initiated the establishment of the plan of care. The patient will be followed by a physician who will periodically review the plan of care. Time Spent With Patient Time: Total time managing care of this patient today ____ minutes.
[2022-11-30 05:54] LABS: Legionella Ag Urine Not Detected (Not Detected)
== END 2022-11-24 12:40 | disposition home health service (06) | DRG 190 ==
LOC: HO.ED 13:58 → HO.EDOVER 14:02 → HO.ICU 14:11 → HO.IMC 11-23 17:56
PROVIDERS: Internal Medicine Pulmonary Disease; Nurse Practitioner Family; Admitting Provider Internal Medicine Cardiovascular Disease; Emergency Provider Emergency Medicine Emergency Medical Services; PCP Internal Medicine; Visit Provider Nurse Practitioner Acute Care
DX: J43.9 Emphysema, unspecified (principal); G93.41 Metabolic encephalopathy; J96.21 Acute and chronic respiratory failure with hypoxia; J96.22 Acute and chronic respiratory failure with hypercapnia; J20.9 Acute bronchitis, unspecified; F17.210 Nicotine dependence, cigarettes, uncomplicated; Z71.6 Tobacco abuse counseling; Z20.822 Contact with and (suspected) exposure to COVID-19; Z79.899 Other long term (current) drug therapy
CPT/HCPCS: 36415; 70450; 71045; 71250; 80048; 80053; 80307; 81001; 82040; 82803; 82947; 83605; 83690; 83735; 83880; 84100; 84145; 84484; 85025; 85610; 85730; 87040; 87070; 87086; 87205; 87449; 87633; 87635; 93005; 94640; 94660; 97162; 99285; C1758; J0456; J0696; J1200; J1643; J2930

== ENCOUNTER → 2022-11-20 13:39 | Outpatient (BNV) | payer BC, SELFPAY | PROVIDERS: Admitting Provider Internal Medicine Cardiovascular Disease; Emergency Provider Emergency Medicine Emergency Medical Services; PCP Internal Medicine; Visit Provider Internal Medicine Cardiovascular Disease | DX: J96.21 Acute and chronic respiratory failure with hypoxia (principal); J96.22 Acute and chronic respiratory failure with hypercapnia; J44.1 Chronic obstructive pulmonary disease with (acute) exacerbation; G93.41 Metabolic encephalopathy; R53.83 Other fatigue | CPT/HCPCS: 99291 ==

== ENCOUNTER → 2022-11-20 13:39 | Outpatient (BNV) | payer BC, SELFPAY | PROVIDERS: Admitting Provider Internal Medicine Cardiovascular Disease; Emergency Provider Emergency Medicine Emergency Medical Services; PCP Internal Medicine; Visit Provider Nurse Practitioner Acute Care | DX: J44.1 Chronic obstructive pulmonary disease with (acute) exacerbation (principal); J96.21 Acute and chronic respiratory failure with hypoxia; J96.22 Acute and chronic respiratory failure with hypercapnia; J20.9 Acute bronchitis, unspecified | CPT/HCPCS: 99239; 99499; G0180 ==

== ENCOUNTER → 2022-11-20 13:39 | Outpatient (BNV) | payer BC, SELFPAY | PROVIDERS: Admitting Provider Internal Medicine Cardiovascular Disease; Emergency Provider Emergency Medicine Emergency Medical Services; PCP Internal Medicine; Visit Provider Internal Medicine Pulmonary Disease | DX: J44.1 Chronic obstructive pulmonary disease with (acute) exacerbation (principal); J96.21 Acute and chronic respiratory failure with hypoxia; J96.22 Acute and chronic respiratory failure with hypercapnia; J20.9 Acute bronchitis, unspecified | CPT/HCPCS: 99232 ==

== ENCOUNTER 2022-12-03 11:18 | Outpatient (AMB) | payer BC, SELFPAY ==
--- NOTE | 2022-12-03 11:21 | MHC.OFFVIS ---
Intake Vital Signs 12/03/22 11:22 Height 5 ft 5 in Weight 132 lb 4.438 oz BMI 22.0 BP 109/58 L Blood Pressure Location Lt brachial Position Sitting Pulse 76 Pulse Source Doppler Pulse Oximetry (%) 95 Oxygen Delivery Method Nasal Cannula Oxygen Flow Rate 2 Intake Visit Reasons: S/p hospital admit Allergies cat dander [CATS] Allergy (Mild, Verified 12/03/22 11:27) sneeze ENVIRONMENTAL Allergy (Mild, Uncoded 12/14/19 17:24) SNEEZING Medical Tape Allergy (Unknown, Uncoded 08/03/17 00:00) rash HPI S/p hospital admit HPI Details 72-year-old lady, recent 50+ pack-year smoker, with recent evaluation on the inpatient service for COPD exacerbation, now returns for hospital follow-up. Patient states that her symptoms have improved and an acute exacerbation has essentially resolved. She was discharged on supplemental oxygen at 2 L continuous flow, Breo, and albuterol MDI. She denies any cough and sputum production. She does complain of acid reflux. Today in-office spirometry shows FEV1 of 0.81 L at 36% of predicted before bronchodilation. [facility] Social History (Updated 12/03/22 @ 11:29 by Valerie Gar [facility]) Household Members: Spouse Housing: House Do you presently have visiting nurse or other home services: No Alcohol intake: never Patient Tobacco Use Status: Former Tobacco user Tobacco use type: Cigarette service: No Review of Systems Const Denies daytime sleepiness, Denies excessive sweating, Denies fatigue, Denies fever(s), Denies lethargy, Denies malaise, Denies night sweats, Denies snoring and Denies weight loss Eyes Denies blurry vision and Denies itchy eyes ENT Denies nasal congestion, Denies post nasal drip, Denies sinus pain, Denies sinus pressure and Denies other ( Thrush) Card Denies chest pain, Denies pedal edema, Denies dyspnea, Reports dyspnea on exertion, Denies orthopnea and Denies paroxysmal nocturnal dyspnea Resp Denies cough, Denies hemoptysis, Denies excessive phlegm production, Denies dyspnea, Reports dyspnea on exertion, Denies snoring and Denies wheezing GI Reports heartburn Musc Denies myalgias, Denies arthralgias and Denies joint swelling Skin/Breast Denies rash Neuro Denies memory loss and Denies seizure-like activity Psych Denies abnormal sleep pattern, Denies anxiety and Denies memory loss Endo Denies excessive sweating, Denies fatigue and Denies heat intolerance Eitan/Lymph Denies easy bruising Aller/Immun Denies itchy eyes, Denies seasonal rhinorrhea and Denies wheezing Physical Exam Vital Signs: Last Vital Signs Pulse 76 12/03/22 11:22 BP 109/58 L 12/03/22 11:22 Pulse Ox 95 12/03/22 11:22 Oxygen Delivery Method Nasal Cannula 12/03/22 11:22 Oxygen Flow Rate 2 12/03/22 11:22 BMI result Body Mass Index 22.0 Const General: no acute distress and alert Nutritional Appearance: not obese Orientation/consciousness: Other orientation findings ( oriented) HEENT Head: Yes atraumatic Eyes General: appearance normal, both eyes and all related structures Sclerae: sclerae normal EOM: EOMs intact bilaterally Neck Neck: Yes supple Lymphatic: no lymphadenopathy noted Resp Effort & Inspection: normal respiratory effort and no use of accessory muscles Auscultation: clear to auscultation bilaterally Cardio Rate: regular rate Rhythm: regular rhythm Heart sounds: no gallops, no murmurs and no rubs Skin General skin exam: other ( warm) Extrem General: No clubbing, No cyanosis and No edema Assessment & Plan Assessment & Plan (1) COPD (chronic obstructive pulmonary disease): Code(s): J44.9 - Chronic obstructive pulmonary disease, unspecified Plan: Likely underlying moderate to severe COPD. Full PFT ordered. Will switch Breo to Stiolto. Continue albuterol MDI as needed. Will refer to Pulmonary Rehab after PFT. (2) Supplemental oxygen dependent: Code(s): Z99.81 - Dependence on supplemental oxygen Plan: In office supplemental oxygen evaluation/6 minute walk test performed - patient continues to require supplemental oxygen at 2 L continuous flow with exertion and at night. (3) GERD (gastroesophageal reflux disease): Code(s): K21.9 - Gastro-esophageal reflux disease without esophagitis Plan: Patient is scheduled to be evaluated by director of product development. Will start on empiric PPI twice a day. Orders: Orders PFT pulmonary function test 11/25/22 J96.21 - Acute and chronic respiratory failure with hypoxia, J96.22 - Acute and chronic respiratory failure with hypercapnia Medications: New tiotropium-olodaterol 2.5-2.5 mcg/actuation (Stiolto Respimat) 2 puffs inhalation DAILY 1 ea 6RF 30 days omeprazole 40 mg PO BID 60 caps 6RF 30 days Discontinued fluticasone furoate-vilanterol 100-25 mcg/dose (Breo Ellipta) Discontinued Reason: Doctor's Order 1 inh inhalation DAILY 60 ea 0RF Coding Level of Care Code Est Pt Level 4 (33391) Diagnoses COPD (chronic obstructive pulmonary disease) J44.9 Supplemental oxygen dependent Z99.81 GERD (gastroesophageal reflux disease) K21.9
[2022-12-03 11:22] VITALS: BP 109/58; PULSE 76; O2SAT 95; BMI 22.0
[2022-12-04 09:42] VITALS: PULSE 72; PULSE 78; O2SAT 92; O2SAT 94
== END 2022-12-03 12:46 | disposition home or self-care (01) ==
PROVIDERS: PCP Internal Medicine; Visit Provider Internal Medicine Pulmonary Disease
DX: J44.9 Chronic obstructive pulmonary disease, unspecified (principal)
CPT/HCPCS: 94618; 99214

== ENCOUNTER → 2022-12-03 11:18 | Outpatient (BNVA) | payer BC, SELFPAY | PROVIDERS: PCP Internal Medicine; Visit Provider Internal Medicine Pulmonary Disease | DX: J96.21 Acute and chronic respiratory failure with hypoxia (principal); J96.22 Acute and chronic respiratory failure with hypercapnia; J44.9 Chronic obstructive pulmonary disease, unspecified; K21.9 Gastro-esophageal reflux disease without esophagitis; Z99.81 Dependence on supplemental oxygen | CPT/HCPCS: 94618 ==

== ENCOUNTER 2022-12-17 08:30 | Outpatient (REF) | payer BC, SELFPAY ==
--- NOTE | 2022-12-17 10:01 | PFT_ITS ---
FLOWS: 1. FEV1 39% of predicted at 0.87 L. 2. FVC 63% of predicted at 1.87 L. 3. FEV1 to FVC ratio of 0.47. 4. No bronchodilator response. LUNG VOLUMES: 1. Total lung capacity 87% of predicted at 4.56 L. 2. Residual volume 108% of predicted at 2.53 L. 3. Slow vital capacity 70% of predicted at 2.03 L. 4. Expiratory reserve volume 104% of predicted at 0.69 L. 5. Diffusion capacity is moderately decreased. IMPRESSION: Severe obstructive ventilatory defect with no bronchodilator response. Decreased diffusion capacity suggests emphysema. MD MARGARET Carlos/MODL / [id number]
== END 2022-12-17 08:31 | disposition home or self-care (01) ==
LOC: HO.RESP 08:30
PROVIDERS: PCP Internal Medicine; Visit Provider Internal Medicine Pulmonary Disease
DX: J96.21 Acute and chronic respiratory failure with hypoxia (principal); J96.22 Acute and chronic respiratory failure with hypercapnia
CPT/HCPCS: 94010; 94727; 94729

== ENCOUNTER → 2022-12-17 10:01 | Outpatient (BNV) | payer BC, SELFPAY | PROVIDERS: PCP Internal Medicine; Visit Provider Internal Medicine Pulmonary Disease | DX: J96.20 Acute and chronic respiratory failure, unspecified whether with hypoxia or hypercapnia (principal) | CPT/HCPCS: 94060; 94727; 94729 ==

== ENCOUNTER 2022-12-31 11:22 | Outpatient (AMB) | payer BC, SELFPAY ==
[2022-12-31 11:25] VITALS: BP 98/62; PULSE 79; O2SAT 97; BMI 23.1
--- NOTE | 2022-12-31 11:25 | MHC.OFFVIS ---
Intake Vital Signs 12/31/22 11:25 Height 5 ft 5 in Weight 138 lb 14.259 oz BMI 23.1 BP 98/62 Blood Pressure Location Rt brachial Position Sitting Pulse 79 Pulse Source Doppler Pulse Oximetry (%) 97 Oxygen Delivery Method Nasal Cannula Oxygen Flow Rate 2 Intake Visit Reasons: copd Allergies cat dander [CATS] Allergy (Mild, Verified 12/31/22 11:29) sneeze ENVIRONMENTAL Allergy (Mild, Uncoded 12/14/19 17:24) SNEEZING Medical Tape Allergy (Unknown, Uncoded 08/03/17 00:00) rash HPI copd HPI Details 72-year-old lady, recent 50+ pack-year smoker, now followed for severe supplemental oxygen 2 L dependent COPD. After the last office visit patient has completed her pulmonary function testing. She also has good symptomatic response to empiric PPI. She continues to use Stiolto and albuterol MDI. She denies recent exacerbations. [facility] Social History Household Members: Spouse Housing: House Do you presently have visiting nurse or other home services: No Alcohol intake: never Patient Tobacco Use Status: Former Tobacco user Tobacco use type: Cigarette service: No Review of Systems Const Denies daytime sleepiness, Denies excessive sweating, Denies fatigue, Denies fever(s), Denies lethargy, Denies malaise, Denies night sweats, Denies snoring and Denies weight loss Eyes Denies blurry vision and Denies itchy eyes ENT Denies nasal congestion, Denies post nasal drip, Denies sinus pain, Denies sinus pressure and Denies other ( Thrush) Card Denies chest pain, Denies pedal edema, Denies dyspnea, Denies orthopnea and Denies paroxysmal nocturnal dyspnea Resp Denies cough, Denies hemoptysis, Denies excessive phlegm production, Denies dyspnea, Denies snoring and Denies wheezing GI Denies abdominal pain and Denies heartburn Musc Denies myalgias, Denies arthralgias and Denies joint swelling Skin/Breast Denies rash Neuro Denies memory loss and Denies seizure-like activity Psych Denies abnormal sleep pattern, Denies anxiety and Denies memory loss Endo Denies excessive sweating, Denies fatigue and Denies heat intolerance Eitan/Lymph Denies easy bruising Aller/Immun Denies itchy eyes, Denies seasonal rhinorrhea and Denies wheezing Physical Exam Vital Signs: Last Vital Signs Pulse 79 12/31/22 11:25 BP 98/62 12/31/22 11:25 Pulse Ox 97 12/31/22 11:25 Oxygen Delivery Method Nasal Cannula 12/31/22 11:25 Oxygen Flow Rate 2 12/31/22 11:25 BMI result Body Mass Index 23.1 Const General: no acute distress and alert Nutritional Appearance: not obese Orientation/consciousness: Other orientation findings ( oriented) HEENT Head: Yes atraumatic Eyes General: appearance normal, both eyes and all related structures Sclerae: sclerae normal EOM: EOMs intact bilaterally Neck Neck: Yes supple Lymphatic: no lymphadenopathy noted Resp Effort & Inspection: normal respiratory effort and no use of accessory muscles Auscultation: clear to auscultation bilaterally Cardio Rate: regular rate Rhythm: regular rhythm Heart sounds: no gallops, no murmurs and no rubs Skin General skin exam: other ( warm) Extrem General: No clubbing, No cyanosis and No edema Assessment & Plan Assessment & Plan (1) COPD (chronic obstructive pulmonary disease): Code(s): J44.9 - Chronic obstructive pulmonary disease, unspecified Plan: Severe COPD controlled on Stiolto and albuterol MDI. Continue current regimen. Will refer to Pulmonary Rehab. (2) Supplemental oxygen dependent: Code(s): Z99.81 - Dependence on supplemental oxygen Plan: Continue supplemental oxygen to maintain O2 saturation of 88-92%. Order for portable oxygen concentrator placed. (3) GERD (gastroesophageal reflux disease): Code(s): K21.9 - Gastro-esophageal reflux disease without esophagitis Plan: Well controlled on empiric PPI. Continue omeprazole 40 mg twice a day. Orders: Orders Pulmonary Rehab Today J44.9 - Chronic obstructive pulmonary disease, unspecified Coding Level of Care Code Est Pt Level 4 (46386) Diagnoses COPD (chronic obstructive pulmonary disease) J44.9 Supplemental oxygen dependent Z99.81 GERD (gastroesophageal reflux disease) K21.9
[2022-12-31 13:15] VITALS: PULSE 87; O2SAT 92; O2SAT 93
== END 2022-12-31 13:19 | disposition home or self-care (01) ==
PROVIDERS: PCP Internal Medicine; Visit Provider Internal Medicine Pulmonary Disease
DX: J44.9 Chronic obstructive pulmonary disease, unspecified (principal); Z99.81 Dependence on supplemental oxygen; K21.9 Gastro-esophageal reflux disease without esophagitis
CPT/HCPCS: 94618; 99214

== ENCOUNTER → 2022-12-31 11:22 | Outpatient (BNVA) | payer BC, SELFPAY | PROVIDERS: PCP Internal Medicine; Visit Provider Internal Medicine Pulmonary Disease | DX: J44.9 Chronic obstructive pulmonary disease, unspecified (principal); K21.9 Gastro-esophageal reflux disease without esophagitis; Z79.899 Other long term (current) drug therapy; Z99.81 Dependence on supplemental oxygen | CPT/HCPCS: 94618 ==

== ENCOUNTER 2023-01-07 08:10 | Outpatient (REF) | payer BC, SELFPAY ==
--- NOTE | ~2023-01-07 | MM_ITS ---
EXAMINATION: MM SCREENING DIGITAL BREAST TOMOSYNTHESIS, BILATERAL CLINICAL INFORMATION: Screening. Asymptomatic. The patient has a history of treated left breast cancer. COMPARISON: Mammography: This study is compared with prior exams dating back to 2018. TECHNIQUE: Digital breast tomosynthesis is performed in both the craniocaudal and mediolateral oblique views along with computer-aided detection (CAD). Synthesized 2D images are generated from the tomosynthesis. FINDINGS: There are scattered areas of fibroglandular density (ACR BI-RADS breast composition Category b). There are no significant masses, abnormal calcifications, or other abnormalities. There are postsurgical changes in the periareolar region of the left breast and left axilla. MM/MM tomosynthesis screening BI IMPRESSION: No mammographic evidence of malignancy. ASSESSMENT: BI-RADS BI-RADS 2 - Benign Findings RECOMMENDATION: Routine annual mammography screening. 1 year F/U This examination should not preclude the clinical evaluation of a suspicious palpable abnormality. This patient's information was entered into a reminder system with a target due date for their next mammogram.
== END 2023-01-07 08:11 | disposition home or self-care (01) ==
LOC: HO.MAMMO 08:10
PROVIDERS: PCP Internal Medicine; Visit Provider Internal Medicine
DX: Z12.31 Encounter for screening mammogram for malignant neoplasm of breast (principal)
CPT/HCPCS: 77063; 77067

== ENCOUNTER → 2023-01-07 08:15 | Outpatient (BNV) | payer BC, SELFPAY | PROVIDERS: PCP Internal Medicine; Visit Provider Radiology Diagnostic Radiology | DX: Z12.31 Encounter for screening mammogram for malignant neoplasm of breast (principal) | CPT/HCPCS: 77063; 77067 ==

== ENCOUNTER 2023-03-30 13:58 | Outpatient (AMB) | payer BC, SELFPAY ==
[2023-03-30 14:00] VITALS: BP 110/62; PULSE 65; O2SAT 97; BMI 24.2
--- NOTE | 2023-03-30 14:00 | MHC.OFFVIS ---
Intake Vital Signs 03/30/23 14:00 Height 5 ft 5 in Weight 145 lb 8.081 oz BMI 24.2 BP 110/62 Blood Pressure Location Rt brachial Position Sitting Pulse 65 Pulse Source Doppler Pulse Oximetry (%) 97 Oxygen Delivery Method Nasal Cannula Oxygen Flow Rate 2 Intake Visit Reasons: COPD Allergies cat dander [CATS] Allergy (Mild, Verified 03/30/23 14:03) sneeze ENVIRONMENTAL Allergy (Mild, Uncoded 01/01/23 14:26) SNEEZING Medical Tape Allergy (Unknown, Uncoded 01/01/23 14:26) rash HPI COPD HPI Details 73-year-old lady, recent 50+ pack-year smoker, now followed for severe supplemental oxygen 2 L dependent COPD. After the last office visit patient continues to use Stiolto and albuterol MDI with reasonable control of his symptoms. She has been participating in pulmonary rehab with significant improvement in function status. She denies recent exacerbations. [facility] Social History Household Members: Spouse Housing: House Do you presently have visiting nurse or other home services: No Alcohol intake: never Patient Tobacco Use Status: Former Tobacco user Tobacco use type: Cigarette service: No Review of Systems Const Denies daytime sleepiness, Denies excessive sweating, Denies fatigue, Denies fever(s), Denies lethargy, Denies malaise, Denies night sweats, Denies snoring and Denies weight loss Eyes Denies blurry vision and Denies itchy eyes ENT Denies nasal congestion, Denies post nasal drip, Denies sinus pain, Denies sinus pressure and Denies other ( Thrush) Card Denies chest pain, Denies pedal edema, Denies dyspnea, Denies orthopnea and Denies paroxysmal nocturnal dyspnea Resp Denies cough, Denies hemoptysis, Denies excessive phlegm production, Denies dyspnea, Denies snoring and Denies wheezing GI Denies abdominal pain and Denies heartburn Musc Denies myalgias, Denies arthralgias and Denies joint swelling Skin/Breast Denies rash Neuro Denies memory loss and Denies seizure-like activity Psych Denies abnormal sleep pattern, Denies anxiety and Denies memory loss Endo Denies excessive sweating, Denies fatigue and Denies heat intolerance Eitan/Lymph Denies easy bruising Aller/Immun Denies itchy eyes, Denies seasonal rhinorrhea and Denies wheezing Physical Exam Vital Signs: Last Vital Signs Pulse 65 03/30/23 14:00 BP 110/62 03/30/23 14:00 Pulse Ox 97 03/30/23 14:00 Oxygen Delivery Method Nasal Cannula 03/30/23 14:00 Oxygen Flow Rate 2 03/30/23 14:00 BMI result Body Mass Index 24.2 Const General: no acute distress and alert Nutritional Appearance: not obese Orientation/consciousness: Other orientation findings ( oriented) HEENT Head: Yes atraumatic Eyes General: appearance normal, both eyes and all related structures Sclerae: sclerae normal EOM: EOMs intact bilaterally Neck Neck: Yes supple Lymphatic: no lymphadenopathy noted Resp Effort & Inspection: normal respiratory effort and no use of accessory muscles Auscultation: clear to auscultation bilaterally Cardio Rate: regular rate Rhythm: regular rhythm Heart sounds: no gallops, no murmurs and no rubs Skin General skin exam: other ( warm) Extrem General: No clubbing, No cyanosis and No edema Assessment & Plan Assessment & Plan (1) COPD (chronic obstructive pulmonary disease): Code(s): J44.9 - Chronic obstructive pulmonary disease, unspecified Plan: Reasonable control on Stiolto and albuterol MDI. Continue current regimen. (2) Supplemental oxygen dependent: Code(s): Z99.81 - Dependence on supplemental oxygen Plan: Continue supplemental oxygen to maintain O2 saturation of 88-92%. Coding Level of Care Code Est Pt Level 4 (41127) Diagnoses COPD (chronic obstructive pulmonary disease) J44.9 Supplemental oxygen dependent Z99.81
== END 2023-03-30 14:30 | disposition home or self-care (01) ==
PROVIDERS: PCP Internal Medicine; Visit Provider Internal Medicine Pulmonary Disease
DX: J44.9 Chronic obstructive pulmonary disease, unspecified (principal); Z99.81 Dependence on supplemental oxygen
CPT/HCPCS: 99214

== ENCOUNTER → 2023-03-30 13:58 | Outpatient (BNVA) | payer BC, SELFPAY | PROVIDERS: PCP Internal Medicine; Visit Provider Internal Medicine Pulmonary Disease ==

== ENCOUNTER 2023-05-04 10:00 | Outpatient (RCR) | payer BC, SELFPAY | END 2023-05-07 10:00 | disposition home or self-care (01) | LOC: HO.PR 10:00 | PROVIDERS: PCP Internal Medicine; Visit Provider Internal Medicine Pulmonary Disease | DX: J44.9 Chronic obstructive pulmonary disease, unspecified (principal) | CPT/HCPCS: 94625; 94761; 99215 ==

== ENCOUNTER 2023-05-19 09:56 | Outpatient (RCR) | payer BC, SELFPAY | END 2023-06-10 14:54 | disposition home or self-care (01) | LOC: HO.OT 09:56 | PROVIDERS: PCP Internal Medicine; Visit Provider Internal Medicine | DX: G25.0 Essential tremor (principal) | CPT/HCPCS: 97166; 97535 ==

== ENCOUNTER 2023-09-16 10:44 | Outpatient (REF) | payer BC, SELFPAY ==
[2023-09-16 10:48] LABS: MANUAL DIFF FLAG NO
[2023-09-16 11:12] LABS: Basophils Absolute Auto 0.1 X10*3/uL (0.0-0.2); Basophils Percent Auto 0.8 % (0-2); Eosinophils Absolute Auto 0.2 X10*3/uL (0.0-0.4); Eosinophils Percent Auto 2.1 % (0-4); Hematocrit 46.7 % (37.0-47.0); Hemoglobin 15.6 g/dl (12.0-16.0); Imm Gran Abs Auto 0.02 X10*3/uL (0.00-0.03); Imm Gran Pct Auto 0.3 % (0.0-0.4); Lymphocytes Absolute Auto 2.7 X10*3/uL (1.2-4.9); Lymphocytes Percent Auto 37.9 % (20-40); Mean Corpuscular HGB Conc 33.4 g/dl (31.0-35.0); Mean Corpuscular Volume 98.7 fL (80.0-98.0); Monocytes Absolute Auto 0.7 X10*3/uL (0.1-1.2); Monocytes Percent Auto 9.6 % (2-11); Neutrophils Absolute Auto 3.5 x10*3/uL (2.0-8.3); Neutrophils Percent Auto 49.3 % (45-73); Platelet Count 254 X10*3/uL (160-400); Red Blood Count 4.73 X10*6/uL (4.20-5.50); Red Cell Distribution Width 13.4 % (11.0-16.0); White Blood Count 7.1 X10*3/uL (4.8-10.8)
[2023-09-16 11:23] LABS: Appearance Urine Clear; Color Urine Yellow; Glucose Urine UA Negative (Negative); Leukocyte Esterase Urine Small (1+) (Negative); Nitrite Urine Negative (Negative); PH 5.5 (5.0-9.0); Specific Gravity - Urine 1.025 (1.005-1.025); UMIC TRIGGER UACC YES; Urine Blood Small (1+) (Negative); Urine Ketones Negative (Negative); Urine Protein Negative (Neg-Trace)
[2023-09-16 11:25] LABS: Estimated Average Glucose 103 mg/dL; Hemoglobin A1c % 5.2 % (<6.0)
[2023-09-16 11:26] LABS: Bacteria Urine None Seen (None Seen); Hyaline Casts Urine 0-2 /LPF (0-2); UACC Culture Trigger YES
[2023-09-16 11:31] LABS: Alanine Aminotransferase 14 U/L (0-31); Albumin Level 4.2 g/dL (3.5-5.0); Alkaline Phosphatase 78 U/L (39-117); Anion Gap 12 (12-20); Aspartate Amino Transferase 19 U/L (5-31); Bilirubin Total 0.4 mg/dL (0.0-1.0); Blood Urea Nitrogen 14 mg/dL (9-16); Carbon Dioxide 29 mmol/L (22-29); Chloride 106 mmol/L (96-108); Cholesterol 226 mg/dL (<200); Estimated Glomerular Filt Rate > 60; Glucose Fasting 87 mg/dL (60-99); HDL Cholesterol 62 mg/dL (>40); LDL Cholesterol Calculated 147 mg/dL (<100); Potassium 4.5 mmol/L (3.3-5.1); Sodium 142 mmol/L (135-145); Total Protein 6.5 g/dL (6.5-8.0); Triglycerides 85 mg/dL (<150)
[2023-09-16 11:46] LABS: Vitamin D 25-OH Total 56.7 ng/mL (>30)
[2023-09-16 12:30] LABS: Creatinine Urine 210.57 mg/dL; Microalbum/Creatinine Ratio Ur 15.1 ug/mg cr (<30)
[2023-09-16 14:05] LABS: Reflex LDLD? No
== END 2023-09-16 10:45 | disposition home or self-care (01) ==
LOC: HO.LNP 10:44
PROVIDERS: Visit Provider Internal Medicine
DX: Z00.00 Encounter for general adult medical examination without abnormal findings (principal); R82.90 Unspecified abnormal findings in urine; Z13.1 Encounter for screening for diabetes mellitus; Z31.89 Encounter for other procreative management
CPT/HCPCS: 80053; 80061; 81001; 82043; 82306; 82570; 83036; 85025; 87086

== ENCOUNTER 2023-09-29 10:43 | Outpatient (AMB) | payer BC, SELFPAY ==
[2023-09-29 10:46] VITALS: BP 106/62; PULSE 65; O2SAT 94; BMI 23.7
--- NOTE | 2023-09-29 10:46 | A.OFFVIS_ITS ---
Vital Signs 09/29/23 10:46 Height 5 ft 5 in Weight 142 lb 3.17 oz BMI 23.7 BP 106/62 Blood Pressure Location Rt brachial Position Sitting Pulse 65 Pulse Source Doppler Pulse Oximetry (%) 94 Oxygen Delivery Method Room Air Intake Visit Reasons: COPD follow-up Allergies cat dander [CATS] Allergy (Mild, Verified 09/29/23 10:52) sneeze ENVIRONMENTAL Allergy (Mild, Uncoded 01/01/23 14:26) SNEEZING Medical Tape Allergy (Unknown, Uncoded 01/01/23 14:26) rash HPI HPI COPD follow-up: Details: 73-year-old lady, recent 50+ pack-year smoker, now followed for severe supplemental oxygen up to 2 L dependent COPD. After the last office visit patient continues to use Stiolto and albuterol MDI with reasonable control of her symptoms. She has completed pulmonary rehab. She denies recent exacerbations. [facility] Social History Household Members: Spouse Housing: House Do you presently have visiting nurse or other home services: No Alcohol intake: never Patient Tobacco Use Status: Former Tobacco user Tobacco use type: Cigarette service: No Review of Systems Const Denies daytime sleepiness, Denies excessive sweating, Denies fatigue, Denies fever(s), Denies lethargy, Denies malaise, Denies night sweats, Denies snoring and Denies weight loss Eyes Denies blurry vision and Denies itchy eyes ENT Denies nasal congestion, Denies post nasal drip, Denies sinus pain, Denies sinus pressure and Denies other ( Thrush) Card Denies chest pain, Denies pedal edema, Denies dyspnea, Denies orthopnea and Denies paroxysmal nocturnal dyspnea Resp Denies cough, Denies hemoptysis, Denies excessive phlegm production, Denies dyspnea, Denies snoring and Denies wheezing GI Denies abdominal pain and Denies heartburn Musc Denies myalgias, Denies arthralgias and Denies joint swelling Skin/Breast Denies rash Neuro Denies memory loss and Denies seizure-like activity Psych Denies abnormal sleep pattern, Denies anxiety and Denies memory loss Endo Denies excessive sweating, Denies fatigue and Denies heat intolerance Eitan/Lymph Denies easy bruising Aller/Immun Denies itchy eyes, Denies seasonal rhinorrhea and Denies wheezing Physical Exam Vital Signs: Last Vital Signs Pulse 65 09/29/23 10:46 BP 106/62 09/29/23 10:46 Pulse Ox 94 09/29/23 10:46 Oxygen Delivery Method Room Air 09/29/23 10:46 BMI result Body Mass Index 23.7 Const General: no acute distress and alert Nutritional Appearance: not obese Orientation/consciousness: Other orientation findings ( oriented) HEENT Head: Yes atraumatic Eyes General: appearance normal, both eyes and all related structures Sclerae: sclerae normal EOM: EOMs intact bilaterally Neck Neck: Yes supple Lymphatic: no lymphadenopathy noted Resp Effort & Inspection: normal respiratory effort and no use of accessory muscles Auscultation: clear to auscultation bilaterally Cardio Rate: regular rate Rhythm: regular rhythm Heart sounds: no gallops, no murmurs and no rubs Skin General skin exam: other ( warm) Extrem General: No clubbing, No cyanosis and No edema Assessment & Plan Assessment & Plan (1) COPD (chronic obstructive pulmonary disease): Code(s): J44.9 - Chronic obstructive pulmonary disease, unspecified Category: Medical Plan: Reasonably well controlled on Stiolto and albuterol MDI. Continue current regimen. (2) Supplemental oxygen dependent: Code(s): Z99.81 - Dependence on supplemental oxygen Category: Medical Plan: Continue supplemental oxygen to maintain O2 saturation of 88-92%. (3) Personal history of nicotine dependence: Code(s): Z87.891 - Personal history of nicotine dependence Category: Medical Plan: Continue with yearly lung cancer screening CT chest. At this time patient wants to delay screening CT scan until June of 2024. Orders: Orders CT lung screening 07/10/24 Z87.891 - Personal history of nicotine dependence Coding Level of Care Code Est Pt Level 4 (91930) Diagnoses COPD (chronic obstructive pulmonary disease) J44.9 Supplemental oxygen dependent Z99.81 Personal history of nicotine dependence Z87.891
== END 2023-09-29 11:17 | disposition home or self-care (01) ==
PROVIDERS: PCP Internal Medicine; Visit Provider Internal Medicine Pulmonary Disease
DX: J44.9 Chronic obstructive pulmonary disease, unspecified (principal); Z99.81 Dependence on supplemental oxygen; Z87.891 Personal history of nicotine dependence
CPT/HCPCS: 99214

== ENCOUNTER → 2023-09-29 10:43 | Outpatient (BNVA) | payer BC, SELFPAY | PROVIDERS: PCP Internal Medicine; Visit Provider Internal Medicine Pulmonary Disease ==

== ENCOUNTER 2023-12-22 11:09 | Outpatient (AMB) | payer BC, SELFPAY ==
[2023-12-22 11:13] VITALS: BP 114/62; PULSE 78; O2SAT 93; BMI 23.8
--- NOTE | 2023-12-22 11:13 | MHC.OFFVIS ---
Vital Signs 12/22/23 11:13 Height 5 ft 5 in Weight 143 lb BMI 23.8 BP 114/62 Blood Pressure Location Rt brachial Position Sitting Pulse 78 Pulse Source Doppler Pulse Oximetry (%) 93 Oxygen Delivery Method Room Air Intake Visit Reasons: COPD follow-up Allergies cat dander [CATS] Allergy (Mild, Verified 09/29/23 10:52) sneeze ENVIRONMENTAL Allergy (Mild, Uncoded 01/01/23 14:26) SNEEZING Medical Tape Allergy (Unknown, Uncoded 01/01/23 14:26) rash HPI HPI COPD follow-up: Details: 73-year-old lady, recent 50+ pack-year smoker, now followed for severe supplemental oxygen up to 2 L dependent COPD, able to utilize POC. She continues on Stiolto and albuterol MDI with reasonable control of her symptoms. She has completed pulmonary rehab. She denies recent exacerbations. [facility] Social History Household Members: Spouse Housing: House Do you presently have visiting nurse or other home services: No Alcohol intake: never Patient Tobacco Use Status: Former Tobacco user Tobacco use type: Cigarette service: No Review of Systems Const Denies daytime sleepiness, Denies excessive sweating, Denies fatigue, Denies fever(s), Denies lethargy, Denies malaise, Denies night sweats, Denies snoring and Denies weight loss Eyes Denies blurry vision and Denies itchy eyes ENT Denies nasal congestion, Denies post nasal drip, Denies sinus pain, Denies sinus pressure and Denies other ( Thrush) Card Denies chest pain, Denies pedal edema, Denies dyspnea, Denies orthopnea and Denies paroxysmal nocturnal dyspnea Resp Denies cough, Denies hemoptysis, Denies excessive phlegm production, Denies dyspnea, Denies snoring and Denies wheezing GI Denies abdominal pain and Denies heartburn Musc Denies myalgias, Denies arthralgias and Denies joint swelling Skin/Breast Denies rash Neuro Denies memory loss and Denies seizure-like activity Psych Denies abnormal sleep pattern, Denies anxiety and Denies memory loss Endo Denies excessive sweating, Denies fatigue and Denies heat intolerance Eiatn/Lymph Denies easy bruising Aller/Immun Denies itchy eyes, Denies seasonal rhinorrhea and Denies wheezing Physical Exam Vital Signs: Last Vital Signs Pulse 78 12/22/23 11:13 BP 114/62 12/22/23 11:13 Pulse Ox 93 12/22/23 11:13 Oxygen Delivery Method Room Air 12/22/23 11:13 BMI result Body Mass Index 23.8 Const General: no acute distress and alert Nutritional Appearance: not obese Orientation/consciousness: Other orientation findings ( oriented) HEENT Head: Yes atraumatic Eyes General: appearance normal, both eyes and all related structures Sclerae: sclerae normal EOM: EOMs intact bilaterally Neck Neck: Yes supple Lymphatic: no lymphadenopathy noted Resp Effort & Inspection: normal respiratory effort and no use of accessory muscles Auscultation: clear to auscultation bilaterally Cardio Rate: regular rate Rhythm: regular rhythm Heart sounds: no gallops, no murmurs and no rubs Skin General skin exam: other ( warm) Extrem General: No clubbing, No cyanosis and No edema Assessment & Plan Assessment & Plan (1) COPD (chronic obstructive pulmonary disease): Code(s): J44.9 - Chronic obstructive pulmonary disease, unspecified Category: Medical Plan: Well controlled on Stiolto and albuterol MDI. Continue current regimen. (2) Supplemental oxygen dependent: Code(s): Z99.81 - Dependence on supplemental oxygen Category: Medical Plan: Continue supplemental oxygen to maintain O2 saturation above 88%. (3) Personal history of nicotine dependence: Code(s): Z87.891 - Personal history of nicotine dependence Category: Medical Plan: Results of lung cancer screening CT chest reviewed, no worrisome nodules, continue with yearly screening, ordered. Coding Level of Care Code Est Pt Level 4 (55910) Diagnoses COPD (chronic obstructive pulmonary disease) J44.9 Supplemental oxygen dependent Z99.81 Personal history of nicotine dependence Z87.891
[2023-12-22 14:43] VITALS: PULSE 74; O2SAT 95
== END 2023-12-22 11:50 | disposition home or self-care (01) ==
PROVIDERS: PCP Internal Medicine; Visit Provider Internal Medicine Pulmonary Disease
DX: J44.9 Chronic obstructive pulmonary disease, unspecified (principal); Z99.81 Dependence on supplemental oxygen; Z87.891 Personal history of nicotine dependence
CPT/HCPCS: 94618; 99214

== ENCOUNTER → 2023-12-22 11:09 | Outpatient (BNVA) | payer BC, SELFPAY | PROVIDERS: PCP Internal Medicine; Visit Provider Internal Medicine Pulmonary Disease | DX: J44.9 Chronic obstructive pulmonary disease, unspecified (principal); Z99.81 Dependence on supplemental oxygen; Z87.891 Personal history of nicotine dependence | CPT/HCPCS: 94618 ==

== ENCOUNTER 2023-12-28 11:21 | Outpatient (REF) | payer BC, SELFPAY ==
[2023-12-28 11:59] LABS: Estimated Average Glucose 103 mg/dL; Hemoglobin A1C 133.5866 umol/L; Hemoglobin A1c % 5.2 % (<6.0); Total Hemoglobin (HGBA1C) 3954.5432 umol/L
[2023-12-28 12:01] LABS: Alanine Aminotransferase 15 U/L (0-31); Albumin Level 4.2 g/dL (3.5-5.0); Aspartate Amino Transferase 20 U/L (5-31); Bilirubin Direct 0.1 mg/dL (0.0-0.5); Bilirubin Total 0.5 mg/dL (0.0-1.0); Cholesterol 231 mg/dL (<200); Glucose Fasting 104 mg/dL (60-99); Total Protein 6.5 g/dL (6.5-8.0); Triglycerides 84 mg/dL (<150)
[2023-12-28 12:02] LABS: Alkaline Phosphatase 81 U/L (39-117); HDL Cholesterol 66 mg/dL (>40); LDL Cholesterol Calculated 149 mg/dL (<100)
[2023-12-28 13:19] LABS: Reflex LDLD? No
== END 2023-12-28 11:22 | disposition home or self-care (01) ==
LOC: HO.LNP 11:21
PROVIDERS: Visit Provider Internal Medicine
DX: R73.09 Other abnormal glucose (principal); E78.2 Mixed hyperlipidemia
CPT/HCPCS: 80061; 80076; 82947; 83036

== ENCOUNTER 2024-01-13 09:21 | Outpatient (REF) | payer BC, SELFPAY ==
--- NOTE | ~2024-01-13 | MM_ITS ---
EXAMINATION: MM SCREENING DIGITAL BREAST TOMOSYNTHESIS, BILATERAL CLINICAL INFORMATION: Screening. Asymptomatic. COMPARISON: Mammography: Comparison is made with available priors TECHNIQUE: Digital breast mammography with tomosynthesis is performed in both the craniocaudal and mediolateral oblique views along with computer-aided detection (CAD). FINDINGS: There are scattered areas of fibroglandular density (ACR BI-RADS breast composition Category b). Right: There are no significant masses, abnormal calcifications, or other abnormalities. Left: Post lumpectomy changes are stable. Circumscribed oval mass in the upper outer breast anterior depth.. Circumscribed oval mass upper outer breast middle depth. no suspicious calcifications or other abnormal findings. MM/MM tomosynthesis screening BI IMPRESSION: Additional imaging is recommended ASSESSMENT: BI-RADS BI-RADS 0 - Incomplete: Needs additional Imaging. RECOMMENDATION: 1. Additional views of the left breast 2. Targeted ultrasound if warranted after review of the additional views. 3. Radiology department staff will contact the patient for additional imaging. Additional Imaging required This examination should not preclude the clinical evaluation of a suspicious palpable abnormality. This patient's information was entered into a reminder system with a target due date for their next mammogram. Electronically signed by: Aundrea Echols DO 01/14/2024 10:07 AM EDT
== END 2024-01-13 09:22 | disposition home or self-care (01) ==
LOC: HO.MAMMO 09:21
PROVIDERS: PCP Internal Medicine; Visit Provider Internal Medicine
DX: Z12.31 Encounter for screening mammogram for malignant neoplasm of breast (principal)
CPT/HCPCS: 77063; 77067

== ENCOUNTER → 2024-01-13 09:30 | Outpatient (BNV) | payer BC, SELFPAY | PROVIDERS: PCP Internal Medicine; Visit Provider Internal Medicine | DX: Z12.31 Encounter for screening mammogram for malignant neoplasm of breast (principal) | CPT/HCPCS: 77063; 77067 ==

== ENCOUNTER 2024-01-19 08:56 | Outpatient (REF) | payer BC, SELFPAY ==
--- NOTE | ~2024-01-19 | US_ITS ---
EXAMINATION: MM DIAGNOSTIC DIGITAL BREAST TOMOSYNTHESIS, left breast CLINICAL INFORMATION: Call back from screening for oval masses in the upper outer left breast. COMPARISON: Mammography: 01/13/2024, 01/07/2023. Prior exams available for comparison. TECHNIQUE: Digital breast tomosynthesis is performed in both the craniocaudal and mediolateral oblique views along with computer-aided detection (CAD). Synthesized 2D images are generated from the tomosynthesis. FINDINGS: There are scattered areas of fibroglandular density (ACR BI-RADS breast composition Category b). 2 subcentimeter Circumscribed oval masses in the upper outer breast persist on additional imaging projections. There are no other significant masses, abnormal calcifications, or other abnormalities. Targeted color Doppler ultrasound in the left breast at 2:00 9 cm from nipple demonstrates a hypoechoic oval circumscribed solid mass versus complicated cyst measuring 5 x 5 x 3 mm. At 2:00 5 cm from nipple in the left breast there is a 6 x 7 x 5 mm hypoechoic oval circumscribed solid mass versus complicated cyst. US/US breast LT limited mamm only IMPRESSION: Solid masses versus complicated cyst in the left breast. Recommend 6 month follow-up ultrasound for further evaluation of stability. Probably benign. ASSESSMENT: BI-RADS BI-RADS 3 - Probably benign finding(s) - 6 month follow-up suggested RECOMMENDATION: 1 year F/U (accession [id number]), 6 Month F/U (accession [id number]) Results were provided to the patient at time of visit by the technologist. This patient's information was entered into a reminder system with a target due date for their next mammogram. Electronically signed by: Aundrea Echols DO 01/19/2024 01:16 PM EDT
== END 2024-01-19 08:57 | disposition home or self-care (01) ==
LOC: HO.MAMMO 08:56
PROVIDERS: PCP Internal Medicine; Visit Provider Internal Medicine
DX: N63.21 Unspecified lump in the left breast, upper outer quadrant (principal)
CPT/HCPCS: 76642; 77061; 77065

== ENCOUNTER → 2024-01-19 09:00 | Outpatient (BNV) | payer BC, SELFPAY | PROVIDERS: PCP Internal Medicine; Visit Provider Internal Medicine | DX: N63.21 Unspecified lump in the left breast, upper outer quadrant (principal) | CPT/HCPCS: 76642; 77061; 77065 ==

== ENCOUNTER 2024-07-25 11:28 | Outpatient (REF) | payer BC, SELFPAY ==
--- NOTE | ~2024-07-25 | US_ITS ---
EXAMINATION: US DIAGNOSTIC ULTRASOUND BREAST, LEFT CLINICAL INFORMATION: 74-year-old female 6 month follow-up for solid masses versus complicated cyst in the left breast on ultrasound.. COMPARISON: Comparison is made with relevant prior imaging. TECHNIQUE: Ultrasound of the breast is performed with real-time loza scale imaging and color Doppler. FINDINGS: Targeted color Doppler ultrasound scanning at 2:00 9 cm from the nipple in the left breast again demonstrates a hypoechoic oval circumscribed solid mass versus complicated cyst measuring 5 x 5 x 3 mm. This is not significantly changed from prior ultrasound 6 months ago. Targeted color Doppler ultrasound at 2:00 5 cm from the nipple demonstrates a hypoechoic oval circumscribed solid mass versus complicated cyst measuring 6 x 7 x 5 mm not significantly changed from prior ultrasound 6 months ago. Results are discussed with the patient at time of visit. US/US breast LT limited mamm only IMPRESSION: Two solid masses versus complicated cyst in the left breast on ultrasound which are not significantly changed from prior ultrasound 6 months ago. Probably benign. Recommend 6 month follow-up ultrasound for further evaluation of stability. ASSESSMENT: BI-RADS 3: Probably Benign RECOMMENDATION: Diagnostic mammography in 6 months. This patient's information was entered into a reminder system with a target due date for their next mammogram. Electronically signed by: Aundrea Echols DO 07/25/2024 02:24 PM EDT
--- OUTSIDE RECORDS SUMMARY | 2024-07-25 13:38 | XMS_ITS | Patient Health Record ---
Author Organization [facility] jessica Eckley Address [address] [place] [address] Care Team Providers Care Senior Marketing Manager Name Role Phone Zach Dow MD Primary Care Provider Chris Hightower Unavailable [phone] Allergies No Known Allergies Reason For Referral No Information Medications Medication SIG (Take, Route, Frequency, Duration) Notes Start Date End Date Status LORazepam on occasion Active Vitamin D 50 MCG (1999) 1 tablet Orally Once a day for 30 day(s) Active Aspirin 325 MG 1 tablet Orally Once a day for 30 day(s) Active Immunizations Vaccine Route Administration Date Status Comme nts COVID-19 Pfizer BioNTech Vaccine Unknown 05/11/2020 Adm inistered 04/28/20 Social History Tobacco Use: Social History Observation Description Date Details (start date - stop date) Former Smoker NA - 10/01/1980 Tobacco Use/Smoking Question Answer Notes Are you a: former smoker When did you stop smoking? 10/01/1980 Additional Findings: Tobacco Non-User Ex-cigaret te smoker Alcohol Screen Question Answer Notes Did you have a drink contain ing alcohol in the past year? Yes How often did you have a dri nk containing alcohol in the past year? 4 or more times a week (4 points) Points 4 Interpretation Positive Tobacco use other than smoking: Question Answer Notes Are you an other tobacco user? No Problems Problem Type SNOMED Code ICD Code Onset Dates Problem Status W/U Status Risk Notes Problem Acquired hammer toe of right foot (2039462144635 105) Other hammer toe(s) (acquired), right foot (M20.41) Active confirmed Problem Acquired hammer toe of left foot (2624627831531 103) Other hammer toe(s) (acquired), left foot (M20.42) Active confirmed Plan Of Treatment Pending Test Test Name Order Date X ray : Foot, left 3V 10/21/2020- Ganglion Cyst Injection/Aspiratio n 10/21/2020 Insurance Providers Payer Name Payer Address Payer Phone Subscriber Number Group Number Insured Name Patient Relationship to Insured Coverage Start Date Coverage End Date [facility] [address] [place] [address] [id number] Ranulfo Escalante Spouse - patient is the spouse of the insured Medical (General) History Medical History History ICD Code Colonic polyps Vitamin D deficiency Cholesterol tremors synovial cyst Osteoporosis cervical cancer Broken bones Diverticulosis Measles Mumps Chicken pox blood clots Surgical History Surgery Date(Month/Year) Breast Cancer Surgery 11/05/2017
--- OUTSIDE RECORDS SUMMARY | 2024-07-25 13:38 | XMS_ITS | Clinical Summary ---
Author Organization [address] Address [address] [place] [id number] Phone Care Team Providers Care Medical Anthropologist Name Role Phone Zach Dow MD Primary Care Provider [phone] Allergies Active Allergy Reactions Criticality Noted Date Comments Cats Sneezing Low 01/06/2023 Medications tiotropium-olod ateroL (STIOLTO RESPIMAT) 2.5-2.5 mcg/actuation mist for inhalation Inhale 2 Inhalation into the lungs daily. Active sertraline (ZOLOFT) 50 mg tablet Take 1 tablet (50 mg total) by mouth daily. Active calcium carbonate 1250 mg (500 mg calcium) - Vitamin D3 200 Unit tablet Take 1 tablet by mouth 2 (two) times daily with breakfast and dinner. Active omeprazole magnesium (PRILOSEC ORAL) Take by mouth. Active primidone (MYSOLINE) 50 mg tabletIndicatio ns:essential tremor Take 5 tablets (250 mg total) by mouth nightly. Start 0.5 tab before going to bed, increase 0.5 tab weekly, max 250 mg (5 tabs) before going to sleep 450 tablet 3 3 Active Active Problems No known active problems Social History Tobacco Use Types Packs/Day Years Used Date Smoking Tobacco: Former Cigarettes Passive Smoke Exposure: Past Tobacco Cessation:Counseling Given: Not Answered PHQ-2 Answer Date Recorded PHQ-2 Total Score 0 01/06/2023 Interpersonal Safety Answer Date Record ed Is there anyone in your life that is hurting or threatening you in anyway? Not on file 01/06/2023 Physical Indicators of Abuse No evidence of phys ical abuse 01/06/2023 Comments No Sex and Gender Information Value Date Recorded Sex Assigned at Not on file Legal Sex Female 3:30 PM EDT Gender Identity Not on file Sexual Orientation Not on file Last Filed Vital Signs Vital Sign Reading Time Taken Comments Blood Pressure 114/80 01/06/2023 10:43 AM EDT Pulse 65 01/06/2023 10:43 AM EDT Temperature 36.7 ??C (98 ??F) 01/06/2023 10:43 AM EDT Respiratory Rate - - Oxygen Saturation 96% 01/06/2023 10:43 AM EDT Inhaled Oxygen Concentration - - Weight 62.6 kg (138 lb) 01/06/2023 10:43 AM EDT Height - - Body Mass Index - - Plan of Treatment Health Maintenance Due Date Last Done Comments HIV screening 02/27/1961 Hepatitis C screening 02/27/1966 Tetanus adult (Td q 10,TDAP once) 1968 Lipid disorder screening 1988 Diabetes screening 02/27/1993 Pneumococcal Vaccine (50+ years) (1 of 1 - PCV) 02/27/1998 Shingles vaccine (Shingrix) (1 of 2 - Shingrix (RZV) 2 Dose Standard Series) 02/27/1998 Osteoporosis screening (bone density) 02/27/2013 RSV Immunization (1 - 1-dose 75+ series) 02/27/2023 Covid-19 vaccine series (1 - season) 2023 Influenza vaccine 11/27/2024 12/20/2019, , 11/15/2016, Additional history exists Breast cancer screening Discontinued Cervical cancer screening Discontinued Meningococcal Vaccine Aged Out No rossi gege eligible based on patient's age to complete this topic Insurance [facility] MEDICARE [facility] MEDICARE [facility] MEDICARE Care Teams Medical Anthropologist Relationship Specialty Start Date End Date Zach Dow MD [address] [place] [address] [place] [address] PCP - General Internal Medicine 12/30/22
== END 2024-07-25 11:29 | disposition home or self-care (01) ==
LOC: HO.MAMMO 11:28
PROVIDERS: PCP Internal Medicine; Visit Provider Internal Medicine
DX: R92.2 Inconclusive mammogram (principal)
CPT/HCPCS: 76642

== ENCOUNTER → 2024-07-25 11:30 | Outpatient (BNV) | payer BC, SELFPAY | PROVIDERS: PCP Internal Medicine; Visit Provider Internal Medicine | DX: N63.21 Unspecified lump in the left breast, upper outer quadrant (principal) | CPT/HCPCS: 76642 ==

== ENCOUNTER 2024-08-07 15:53 | Outpatient (REF) | payer BC, SELFPAY ==
--- NOTE | ~2024-08-07 | CT_ITS ---
CLINICAL HISTORY: Z87.891 - Personal history of nicotine dependence CT lung cancer screening (LDCT) Comparison: CT/REG/SR - CT CHEST WO IV CON - 11/20/22 13:34 EDT Technique: Axial CT images of the chest using low-dose technique. Referring provider counseled the patient on shared decision-making for LDCT screening. Additional counseling was provided on smoking cessation. Effective radiation dose total: DLP 30.4 mGycm, CTDIvol 0.9 mGy. Findings: Lung: There are 2 adjacent 3 mm nodules within the left lower lobe on image 61 without change. There are no new pulmonary nodules. There are moderate emphysematous changes. Coronary artery calcifications: none Limited upper abdomen: Unremarkable Other: None Impression: Category 2: Benign appearance or behavior. Continue annual screening. # #L2 ## Category 1: Normal; continue annual screening Category 2: Benign appearance or behavior, continue annual screening Category 3: Probably benign, [address] recommended Category 4A: Suspicious, [address] recommended; may consider PET/CT Category 4B: Suspicious, Additional diagnostics and/or tissue sampling recommended Category 4X: Suspicious, Additional diagnostics and/or tissue sampling recommended Category 0: Recalls (incomplete screen due to Incomplete coverage, Noise, Respiratory motion, Expiration, Obscured by acute abnormality) This document has been electronically signed by: Eulalia Armstrong MD on 08/08/2024 15:49:27
--- OUTSIDE RECORDS SUMMARY | 2024-08-07 15:56 | XMS_ITS | Clinical Summary ---
Author Organization [address] Address [address] [place] [id number] Phone Care Team Providers Care Funeral Service Manager Name Role Phone Zach Dow MD Primary Care Provider [phone] Allergies Active Allergy Reactions Criticality Noted Date [...] cancer screening Discontinued Cervical cancer screening Discontinued Colon cancer screening, Colonoscopy Discontinued Meningococcal Vaccine Aged Out No rossi gege eligible based on patient's age to complete this topic Insurance [facility] [address] [facility] MEDICARE [facility] MEDICARE Care Teams Funeral Service Manager Relationship Specialty Start Date End Date Zach Dow MD [address] [place] [address] [place] [phone] PCP - General Internal Medicine 12/30/22
== END 2024-08-07 15:54 | disposition home or self-care (01) ==
LOC: HO.CT 15:53
PROVIDERS: PCP Internal Medicine; Visit Provider Internal Medicine Pulmonary Disease
DX: Z12.2 Encounter for screening for malignant neoplasm of respiratory organs (principal); Z87.891 Personal history of nicotine dependence
CPT/HCPCS: 71271

== ENCOUNTER → 2024-08-07 15:56 | Outpatient (BNV) | payer BC, SELFPAY | PROVIDERS: PCP Internal Medicine; Visit Provider Radiology Diagnostic Radiology | DX: Z87.891 Personal history of nicotine dependence (principal) | CPT/HCPCS: 71271 ==

== ENCOUNTER 2024-09-01 14:41 | Outpatient (AMB) | payer BC, SELFPAY ==
[2024-09-01 14:44] VITALS: BP 110/62; PULSE 85; O2SAT 92; BMI 22.5
--- NOTE | 2024-09-01 14:44 | A.OFFVIS_ITS ---
Vital Signs 09/01/24 14:44 Height 5 ft 5 in Weight 135 lb BMI 22.5 BP 110/62 Blood Pressure Location Rt brachial Position Sitting Pulse 85 Pulse Source Pulse Oximeter Pulse Oximetry (%) 92 Oxygen Delivery Method Room Air Intake Visit Reasons: copd Allergies cat dander [CATS] Allergy (Mild, Verified 09/29/23 10:52) sneeze ENVIRONMENTAL Allergy (Mild, Uncoded 01/01/23 14:26) SNEEZING Medical Tape Allergy (Unknown, Uncoded 01/01/23 14:26) rash HPI HPI copd: Details: 74-year-old lady, recent 50+ pack-year smoker, now followed for severe supplemental oxygen 1-2 L dependent COPD, able to utilize POC. She continues on Stiolto and albuterol MDI with reasonable control of her symptoms. She has completed pulmonary rehab. She denies recent exacerbations. Her lung cancer screening CT chest is benign. [facility] Social History Household Members: Spouse Housing: House Do you presently have visiting nurse or other home services: No Alcohol intake: never Patient Tobacco Use Status: Former Tobacco user Tobacco use type: Cigarette service: No Review of Systems Const Denies daytime sleepiness, Denies excessive sweating, Denies fatigue, Denies fever(s), Denies lethargy, Denies malaise, Denies night sweats, Denies snoring and Denies weight loss Eyes Denies blurry vision and Denies itchy eyes ENT Denies nasal congestion, Denies post nasal drip, Denies sinus pain, Denies sinus pressure and Denies other ( Thrush) Card Denies chest pain, Denies pedal edema, Denies dyspnea, Denies orthopnea and Denies paroxysmal nocturnal dyspnea Resp Denies cough, Denies hemoptysis, Denies excessive phlegm production, Denies dyspnea, Denies snoring and Denies wheezing GI Denies abdominal pain and Denies heartburn Musc Denies myalgias, Denies arthralgias and Denies joint swelling Skin/Breast Denies rash Neuro Denies memory loss and Denies seizure-like activity Psych Denies abnormal sleep pattern, Denies anxiety and Denies memory loss Endo Denies excessive sweating, Denies fatigue and Denies heat intolerance Eitan/Lymph Denies easy bruising Aller/Immun Denies itchy eyes, Denies seasonal rhinorrhea and Denies wheezing Physical Exam Vital Signs: Last Vital Signs Pulse 85 09/01/24 14:44 BP 110/62 09/01/24 14:44 Pulse Ox 92 09/01/24 14:44 Oxygen Delivery Method Room Air 09/01/24 14:44 BMI result Body Mass Index 22.5 Const General: no acute distress and alert Nutritional Appearance: not obese Orientation/consciousness: Other orientation findings ( oriented) HEENT Head: Yes atraumatic Eyes General: appearance normal, both eyes and all related structures Sclerae: sclerae normal EOM: EOMs intact bilaterally Neck Neck: Yes supple Lymphatic: no lymphadenopathy noted Resp Effort & Inspection: normal respiratory effort and no use of accessory muscles Auscultation: clear to auscultation bilaterally Cardio Rate: regular rate Rhythm: regular rhythm Heart sounds: no gallops, no murmurs and no rubs Skin General skin exam: other ( warm) Extrem General: No clubbing, No cyanosis and No edema Assessment & Plan Assessment & Plan (1) COPD (chronic obstructive pulmonary disease): Code(s): J44.9 - Chronic obstructive pulmonary disease, unspecified Category: Medical Plan: Well controlled on Stiolto and albuterol MDI. Continue current regimen. (2) Supplemental oxygen dependent: Code(s): Z99.81 - Dependence on supplemental oxygen Category: Medical Plan: Continue supplemental oxygen to maintain O2 saturation of 89-93%. (3) Personal history of nicotine dependence: Code(s): Z87.891 - Personal history of nicotine dependence Category: Medical Plan: Results of lung cancer screening CT chest reviewed, no worrisome nodules. Medications: Changed From tiotropium-olodaterol 2.5-2.5 mcg/actuation (Stiolto Respimat) 2 puffs PO DAILY 4 grams 6RF To tiotropium-olodaterol 2.5-2.5 mcg/actuation (Stiolto Respimat) 2 puffs PO DAILY 3 ea 4RF 90 days Coding Level of Care Code Est Pt Level 4 (18421) Complex EM visit Add On G2211 Diagnoses COPD (chronic obstructive pulmonary disease) J44.9 Supplemental oxygen dependent Z99.81 Personal history of nicotine dependence Z87.891
== END 2024-09-01 15:14 | disposition home or self-care (01) ==
LOC: HO.HPS 14:42
PROVIDERS: PCP Internal Medicine; Visit Provider Internal Medicine Pulmonary Disease
DX: J44.9 Chronic obstructive pulmonary disease, unspecified (principal); Z99.81 Dependence on supplemental oxygen; Z87.891 Personal history of nicotine dependence
CPT/HCPCS: 99214

== ENCOUNTER → 2024-09-01 14:41 | Outpatient (BNVA) | payer BC, SELFPAY | PROVIDERS: PCP Internal Medicine; Visit Provider Internal Medicine Pulmonary Disease ==

== ENCOUNTER 2024-09-18 10:17 | Outpatient (REF) | payer BC, SELFPAY ==
--- OUTSIDE RECORDS SUMMARY | 2024-06-29 10:03 | XMS_ITS ---
Author Organization Zach Dow MD Address [address] [place] [id number] Care Team Providers Care Clean Up Helper Banquet Name Role Phone Zach Dow Primary Care Provider Medications Medication SIG (Take, Route, Frequency, Duration) Notes Start Date End Date Status Escitalopram Oxalate 5 MG 1 tablet Orall y Once a day for 90 days Active Stiolto Respimat 2.5-2.5 MCG/ACT 1 puff Inhalation Once a day for 90 days Active Encounters Encounter Location Date Provider Diagnosis Zach Dow MD [address] [place], [place] [id number] 06/29/2024 Zach Dow COPD, moderate J44.9 Assessments Encounter Date Diagnosis (ICD Code) Assessment Notes Treatment Notes Treatment Clinical Notes Section Notes 06/29/2024 COPD, moderate (ICD-10 - J44.9) Plan Of Treatment Medication Medication Name Sig Start Date Stop Date Notes Escitalopram Oxalate 5 MG 1 tablet Orall y Once a day for 90 days Stiolto Respimat 2.5-2.5 MCG/ACT 1 puff Inhalation Once a day for 90 days Next Appt Details Provider Name:Zach Foss ier, 09/21/2024 08:00:00 AM, [address] [place] [address] Drive, Suite [facility], [place], [place], [id number], Progress Notes * Kalli SAPP LDOB: (74 yo F)Acc No.[id number]:06/29/2024 Patient: Jhoana Kalli RIOS :1950 A ge:74 Y S ex:Female Address:[address] [place] [id number] * Refills Refill Stiolto Respimat Aerosol Solution, 2.5-2.5 MCG/ACT, Inhalation, 3, 1 puff, Once a day, 90 days, Refills=3 Refill Escitalopram Oxalate Tablet, 5 MG, Orally, 90, 1 tablet, Once a day, 90 days, Refills=3 * true * Date: Generated for Jaquan rios/Kapil/Loretaitting on: 0 09/18/2024 11:27 AM EDT
[2024-09-18 10:22] LABS: MANUAL DIFF FLAG NO
[2024-09-18 10:35] LABS: Basophils Percent Auto 0.5 % (0-2); Eosinophils Absolute Auto 0.1 X10*3/uL (0.0-0.4); Eosinophils Percent Auto 1.2 % (0-4); Hematocrit 47.8 % (37.0-47.0); Hemoglobin 16.1 g/dl (12.0-16.0); Imm Gran Abs Auto 0.02 X10*3/uL (0.00-0.03); Imm Gran Pct Auto 0.3 % (0.0-0.4); Lymphocytes Absolute Auto 2.4 X10*3/uL (1.2-4.9); Lymphocytes Percent Auto 36.1 % (20-40); Mean Corpuscular HGB Conc 33.7 g/dl (31.0-35.0); Mean Corpuscular Hemoglobin 33.5 pg (27.0-33.0); Mean Corpuscular Volume 99.6 fL (80.0-98.0); Mean Platelet Volume 10.9 fL (9.4-12.3); Monocytes Absolute Auto 0.7 X10*3/uL (0.1-1.2); Monocytes Percent Auto 10.8 % (2-11); Neutrophils Absolute Auto 3.4 x10*3/uL (2.0-8.3); Neutrophils Percent Auto 51.1 % (45-73); Platelet Count 210 X10*3/uL (160-400); Red Cell Distribution Width 12.7 % (11.0-16.0); White Blood Count 6.6 X10*3/uL (4.8-10.8)
[2024-09-18 10:48] LABS: Creatinine Urine 180.95 mg/dL; Estimated Average Glucose 105 mg/dL; Hemoglobin A1C 141.3653 umol/L; Hemoglobin A1c % 5.3 % (<6.0); Microalbum/Creatinine Ratio Ur 17.6 ug/mg cr (<30)
[2024-09-18 10:56] LABS: Appearance Urine Clear; Color Urine Yellow; Glucose Urine UA Negative (Negative); Leukocyte Esterase Urine Small (1+) (Negative); Nitrite Urine Negative (Negative); PH 5.5 (5.0-9.0); Specific Gravity - Urine 1.025 (1.005-1.025); UMIC TRIGGER UACC YES; Urine Blood Trace (Negative); Urine Ketones Trace mg/dL (Negative); Urine Protein Negative (Neg-Trace)
[2024-09-18 11:09] LABS: Bacteria Urine None Seen (None Seen); Hyaline Casts Urine 0-2 /LPF (0-2); RBC Urine 0-2 /HPF (0-2); UACC Culture Trigger YES; WBC Urine 0-5 /HPF (0-5)
[2024-09-18 11:17] LABS: Alanine Aminotransferase 14 U/L (0-31); Albumin Level 4.3 g/dL (3.5-5.0); Alkaline Phosphatase 68 U/L (39-117); Anion Gap 13 (12-20); Aspartate Amino Transferase 22 U/L (5-31); Bilirubin Total 0.6 mg/dL (0.0-1.0); Blood Urea Nitrogen 16 mg/dL (9-16); Calcium 9.3 mg/dL (8.4-10.2); Carbon Dioxide 29 mmol/L (22-29); Chloride 102 mmol/L (96-108); Cholesterol 222 mg/dL (<200); Estimated Glomerular Filt Rate > 60; Glucose Fasting 85 mg/dL (60-99); HDL Cholesterol 65 mg/dL (>40); LDL Cholesterol Calculated 143 mg/dL (<100); Potassium 4.6 mmol/L (3.3-5.1); Sodium 139 mmol/L (135-145); Total Protein 6.3 g/dL (6.5-8.0); Triglycerides 70 mg/dL (<150); Vitamin D 25-OH Total 65.6 ng/mL (>30)
== END 2024-09-18 10:18 | disposition home or self-care (01) ==
LOC: HO.LNP 10:17
PROVIDERS: Visit Provider Internal Medicine
DX: Z00.00 Encounter for general adult medical examination without abnormal findings (principal); R73.03 Prediabetes; E78.2 Mixed hyperlipidemia; E55.9 Vitamin D deficiency, unspecified
CPT/HCPCS: 80053; 80061; 81001; 82043; 82306; 82570; 83036; 85025; 87086